=== PATIENT | male | born 1965 | race Caucasian/White ===

== ENCOUNTER 2016-06-11 12:09 | Emergency (ER) | payer BC, OTHER ==
[~2016-06-11] VITALS: Ht 165.1 cm; Wt 129.5 kg
[~2016-06-11 12:09] MED LIST: CHOL100010 PO; DICL50TA3 PO; MULTTAB58 PO; NAPR1TAB9 PO; SERT50TA PO; ZOLP10TA PO
[2016-06-11 12:14] VITALS: TEMP 36.8; Ht 165.1 cm; Wt 129.5 kg
[2016-06-11 12:24] VITALS: O2SAT 96
[2016-06-11 12:39] LABS: HEMATOCRIT 41.5 % (42-52); MEAN CELL VOLUME 92.8 fL (80-100); MEAN CORPUSCULAR HEMOGLOBIN 33.8 pg (25-34); MEAN CORPUSCULAR HGB CONC 36.4 g/dl (32-36); MEAN PLATELET VOLUME 8.7 fL (7.4-10.4); PLATELET COUNT 180 K/uL (130-400); RED BLOOD COUNT 4.47 M/uL (4.7-6.1); WHITE BLOOD COUNT 5.34 K/uL (4.8-10.8)
[2016-06-11 12:51] LABS: BUN/CREATININE RATIO 11.3 (10-20); CALCIUM 8.8 mg/dl (8.5-10.1); CREATININE 1.2 mg/dl (0.60-1.40); POTASSIUM 4.1 mmol/L (3.5-5.1)
[2016-06-11 12:52] LABS: INR 0.9 (0.9-1.1); PARTIAL THROMBOPLASTIN RATIO 0.9; PROTHROMBIN TIME (PATIENT) 10.1 SECONDS (9.0-12.0)
[2016-06-11 12:55] LABS: ALB/GLOB RATIO 1.3 (0.9-2); CKMB/CK RATIO 1.5 (0-3.0)
--- NOTE | 2016-06-11 12:55 | DIAGNOSTIC IMAGING REPORT ---
CHEST ONE VIEW PORTABLE CLINICAL HISTORY: CP dyspnea COMPARISON STUDY: 12/01/2011 FINDINGS: The bones soft tissues and hemidiaphragms are normal. The cardiomediastinal silhouette is normal. The lungs are clear. The pulmonary vasculature is normal. IMPRESSION: Negative chest. Electronically signed by: Celso Maldonado M.D. 06/11/2016 12:53 PM Dictated Date/Time: 06/11/2016 12:53 PM
[2016-06-11] MEDS ORDERED: CHOL1TAB42 PO (12:57)
--- NOTE | 2016-06-11 13:40 | EMERGENCY ROOM VISIT NOTE ---
History Report prepared by Kay: Wolfgang Temple Under the Supervision of: Dr. Grant Montana M.D. First contact with patient: 13:32 Chief Complaint: SWELLING TO EXTREMITY Stated Complaint: L LEG SWELLING/PAIN History of Present Illness The patient is a 50 year old male who presents to the Emergency Room with complaints of waxing and waning left leg swelling that started 2 days ago. He says he woke up that morning with left leg swelling, bruising, and pain. The patient has also been tired recently. He states that the symptoms got a bit better yesterday, but worsened today. He additionally complains of a bit of left chest pain, but currently his pain is a bit better. The patient has a history of blood clots in his legs. He denies any shortness of breath, loss of consciousness, or back pain. He has not had any recent long car trips. He is not on any steroids. The patient has no family history of heart problems, but he does have a family history of blood clots. Source of History: patient Onset: 2 days ago Position: leg (left) Timing: waxes/wanes Associated Symptoms: + chest pain, + fatigue, No LOC, No SOB, No back pain Note: Associated symptoms: Left leg pain and bruising. Review of Systems See HPI for pertinent positives & negatives. A total of 10 systems reviewed and were otherwise negative. Past Medical & Surgical Medical Problems: (1) Arthritis (2) Carcinoid tumor of colon (3) REN on CPAP (4) Ulcerative colitis Surgical Problems: (1) H/O colectomy (2) H/O eye surgery (3) H/O inguinal hernia repair (4) History of parotid gland excision (5) History of tonsillectomy and adenoidectomy Family History Blood clots FH: heart disease Social History Smoking Status: Never Smoker Alcohol Use: occasionally Marital Status: Housing Status: lives with family Occupation Status: employed Current/Historical Medications Scheduled Cholecalciferol (Vitamin D), 10,000 UNITS PO WK Multiple Vitamin (Multivitamin), 1 TABLET PO DAILY Sertraline (Zoloft), 100 MG PO DAILY Scheduled PRN Naproxen (Aleve), 220 MG PO BID PRN for Pain Zolpidem Tartrate (Ambien), 1 TAB PO HS PRN for Insomnia Allergies Coded Allergies: Codeine (Verified Adverse Reaction, Intermediate, headache, 06/11/16) Physical Exam Vital Signs Date Time Temp Pulse Resp B/P Pulse Ox O2 Delivery O2 Flow Rate FiO2 06/11/16 15:23 73 18 127/77 96 06/11/16 14:07 76 16 124/67 98 Room Air 06/11/16 12:24 75 18 96 Room Air 06/11/16 12:24 96 Room Air 06/11/16 12:14 36.8 79 20 142/92 96 Room Air Physical Exam GENERAL: Patient is well appearing and in no acute distress. HEENT: No acute trauma, normocephalic atraumatic, mucous membranes moist, no nasal congestion, no scleral icterus. NECK: No stridor, no adenopathy, no meningismus, trachea is midline. LUNGS: No dyspnea. Clear to auscultation and equal bilaterally. No wheeze, no rhonchi. HEART: Regular rate and rhythm. No murmurs, rubs, gallops appreciated. ABDOMEN: Soft, nontender, bowel sounds positive, no masses appreciated, no peritonitis. BACK: No midline tenderness, no CVA tenderness EXTREMITIES: Normal motion all extremities, no cyanosis. Mild swelling right calf compared to left, bruise of left lower inner thigh. NEUROLOGIC: Alert and oriented, no acute motor or sensory deficits, no focal weakness, cranial nerves grossly intact. SKIN: No rash, no jaundice, no diaphoresis. Medical Decision & Procedures ER Provider Diagnostic Interpretation: X ray results and stated below per my interpretation and radiologist interpretation. Other radiology results and stated below per my review and radiologist interpretation: CHEST ONE VIEW PORTABLE CLINICAL HISTORY: CP dyspnea COMPARISON STUDY: 12/01/2011 FINDINGS: The bones soft tissues and hemidiaphragms are normal. The cardiomediastinal silhouette is normal. The lungs are clear. The pulmonary vasculature is normal. IMPRESSION: Negative chest. Electronically signed by: Celso Maldonado M.D. 06/11/2016 12:53 PM Dictated Date/Time: 06/11/2016 12:53 PM Venous Doppler right leg RIGHT VENOUS DOPP LOWER EXT UNILAT CLINICAL HISTORY: Right leg swelling Right pain. Edema. TECHNIQUE: Venous Doppler COMPARISON STUDY: None FINDINGS: No evidence of deep venous thrombosis. Small popliteal cyst. IMPRESSION: 1. No evidence of deep venous thrombosis. 2. 4 x 2 cm popliteal cyst Electronically signed by: Celso Maldonado M.D. 06/11/2016 2:35 PM Dictated Date/Time: 06/11/2016 2:34 PM CHEST CTA for PULMONARY ARTERIES CT DOSE: 732.59 mGy.cm HISTORY: Chest pain dyspnea TECHNIQUE: Multiaxial CT images of the chest were performed following the intravenous administration of contrast to evaluate the pulmonary arteries. Maximal intensity projection images were also obtained. COMPARISON STUDY: 06/09/2015 FINDINGS: There is a normal caliber thoracic aorta with no evidence for dissection. There is no evidence for pulmonary embolus. No pleural effusions. No pneumothorax. The liver and spleen are unremarkable. No mediastinal or hilar lymphadenopathy. The central airways are patent. The lungs are clear. IMPRESSION: No evidence for pulmonary embolus. The lungs are clear. Electronically signed by: Celso Maldonado M.D. 06/11/2016 2:46 PM Dictated Date/Time: 06/11/2016 2:40 PM Laboratory Results 06/11/16 12:26 06/11/16 12:26 Test 06/11/16 12:26 06/11/16 12:46 Red Blood Count 4.47 M/uL (4.7-6.1) Mean Corpuscular Volume 92.8 fL (80-100) Mean Corpuscular Hemoglobin 33.8 pg (25-34) Mean Corpuscular Hemoglobin Concent 36.4 g/dl (32-36) RDW Standard Deviation 43.0 fL (36.4-46.3) RDW Coefficient of Variation 12.7 % (11.5-14.5) Mean Platelet Volume 8.7 fL (7.4-10.4) Prothrombin Time 10.1 SECONDS (9.0-12.0) Prothromb Time International Ratio 0.9 (0.9-1.1) Activated Partial Thromboplast Time 23.6 SECONDS (21.0-31.0) Partial Thromboplastin Ratio 0.9 Anion Gap 12.0 mmol/L (3-11) Est Creatinine Clear Calc Drug Dose 93.4 ml/min Estimated GFR () 81.8 Estimated GFR (Non- 70.6 BUN/Creatinine Ratio 11.3 (10-20) Calcium Level 8.8 mg/dl (8.5-10.1) Total Bilirubin 0.6 mg/dl (0.2-1) Aspartate Amino Transf (AST/SGOT) 18 U/L (15-37) Alanine Aminotransferase (ALT/SGPT) 31 U/L (12-78) Alkaline Phosphatase 60 U/L (45-117) Total Creatine Kinase 162 U/L (39-308) Creatine Kinase MB 2.5 ng/ml (0.5-3.6) Creatine Kinase MB Ratio 1.5 (0-3.0) Total Protein 7.0 gm/dl (6.4-8.2) Albumin 4.0 gm/dl (3.4-5.0) Globulin 3.0 gm/dl (2.5-4.0) Albumin/Globulin Ratio 1.3 (0.9-2) Bedside D-Dimer 271 ng/mlFEU (0-450) Bedside Troponin I 0.000 ng/ml (0-0.045) Laboratory results as reviewed by me. ECG Indication: chest pain Rate (beats per minute): 74 Rhythm: normal sinus Findings: no acute ischemic change, no ectopy ED Course 1335: The patient was evaluated in room A3. A complete history and physical exam was performed. 1512: I reevaluated the patient and he feels great and would like to go home. The patient verbally expressed understanding and agreement of the treatment plan. The patient will be discharged. Medical Decision Differential: Cardiac Ischemia (STEMI, NSTEMI, Unstable Angina, etc), Aortic Dissection, Arrhythmia, Pulmonary Embolism, Pneumonia, Pneumothorax, MSK, Infectious, Pericarditis/Myocarditis, Esophageal Rupture, Gastrointestinal, amongst other pathologies entertained. 50 yr old male arrives with right medial leg pain and bruising along with just mild increase right calf size compared to left (~1 cm). Notes earlier left upper chest pain brief without other symptoms and worse with movement though resolved now. EKG, trop negative. CT PE negative (done as history of dvt and leg swelling with recent chest pain, regardless of dimer). US right lower extremity consistent with moderately sized popliteal cyst without DVT. No evidence of DVT, PE, ACS, dissection, nor other issue. He is stable and without symptoms currently. Will follow up with PCP. Aware RTED if worsening or other concerns. Stable and feeling well at discharge. Impression Primary Impression: Swelling of right extremity Additional Impressions: Synovial cyst of right popliteal space Left sided chest pain Scribe Attestation The scribe's documentation has been prepared under my direction and personally reviewed by me in its entirety. I confirm that the note above accurately reflects all work, treatment, procedures, and medical decision making performed by me. Departure Information Dispostion Home / Self-Care Referrals No Doctor, Assigned (PCP) Patient Instructions Chest Pain - [facility], ED Edema Leg Unilateral, My [facility] Additional Instructions Please call your primary care provider tomorrow to set up a follow up appointment and discuss a stress test. Problem Qualifiers
[2016-06-11] MEDS ORDERED: OPTIRAY 320 IV PRN (14:00)
--- NOTE | 2016-06-11 14:36 | DIAGNOSTIC IMAGING REPORT ---
Venous Doppler right leg RIGHT VENOUS DOPP LOWER EXT UNILAT CLINICAL HISTORY: Right leg swelling Right pain. Edema. TECHNIQUE: Venous Doppler COMPARISON STUDY: None FINDINGS: No evidence of deep venous thrombosis. Small popliteal cyst. IMPRESSION: 1. No evidence of deep venous thrombosis. 2. 4 x 2 cm popliteal cyst Electronically signed by: Celso Maldonado M.D. 06/11/2016 2:35 PM Dictated Date/Time: 06/11/2016 2:34 PM
--- NOTE | 2016-06-11 14:47 | DIAGNOSTIC IMAGING REPORT ---
CHEST CTA for PULMONARY ARTERIES CT DOSE: 732.59 mGy.cm HISTORY: Chest pain dyspnea TECHNIQUE: Multiaxial CT images of the chest were performed following the intravenous administration of contrast to evaluate the pulmonary arteries. Maximal intensity projection images were also obtained. COMPARISON STUDY: 06/09/2015 FINDINGS: There is a normal caliber thoracic aorta with no evidence for dissection. There is no evidence for pulmonary embolus. No pleural effusions. No pneumothorax. The liver and spleen are unremarkable. No mediastinal or hilar lymphadenopathy. The central airways are patent. The lungs are clear. IMPRESSION: No evidence for pulmonary embolus. The lungs are clear. Electronically signed by: Celso Maldonado M.D. 06/11/2016 2:46 PM Dictated Date/Time: 06/11/2016 2:40 PM
[2016-06-11 15:23] VITALS: BP 127/77; PULSE 73; O2SAT 96
[2016-06-27] MEDS ORDERED: SERT100T PO (10:29)
[2016-06-27] MEDS ORDERED: MELO15TA4 PO (10:29)
== END 2016-06-11 15:25 | disposition home or self-care (01) ==
LOC: C.EDB 12:10 → C.EDA 15:25
DX: M71.21 Synovial cyst of popliteal space [Baker], right knee (principal); R22.42 Localized swelling, mass and lump, left lower limb; R07.89 Other chest pain; M19.90 Unspecified osteoarthritis, unspecified site; G47.33 Obstructive sleep apnea (adult) (pediatric); Z87.11 Personal history of peptic ulcer disease; Z85.030 Personal history of malignant carcinoid tumor of large intestine; Z79.899 Other long term (current) drug therapy; Z98.890 Other specified postprocedural states; Z88.5 Allergy status to narcotic agent; Z82.49 Family history of ischemic heart disease and other diseases of the circulatory system; Z83.2 Family history of diseases of the blood and blood-forming organs and certain disorders involving the immune mechanism

== ENCOUNTER → 2016-07-07 | Day surgery (SDC) | payer BC ==
[2016-06-27 10:30] VITALS: Ht 167.6 cm; Wt 119.5 kg
[~2016-07-07] VITALS: Ht 167.6 cm; Wt 119.5 kg
[~2016-07-07] MED LIST changes: -CHOL100010 PO; +CHOL1TAB42 PO; -DICL50TA3 PO; +LIDOCAINE HCL 2% 2 ML VIAL (20MG/ML) ONE; +MELO15TA4 PO; +PROPOFOL IV EMULSION 10 MG/ML 20 ML VIAL IV ONE; +SERT100T PO; -SERT50TA PO; +SODIUM CHLORIDE 0.9% 500ML 500 ML IV ONE
--- NOTE | 2016-07-07 09:42 | Endo History and Physical ---
History & Physical Date of Service: Jul 07, 2016. Chief Complaint: ulcerative colitis Referring Physician: Dr. Celso Oneal History of Present Illness ulcerative colitis Past Medical History Asthma, Cancer, Sleep Apnea Past Surgical History Hx Cardiac Surgery: No Hx Internal Defibrillator: No Hx Pacemaker: No Hx Abdominal Surgery: Yes (HERNIA REPAIR) Hx of Implantable Prosthesis: No Hx Post-Op Nausea and Vomiting: No Hx Cancer Surgery: Yes (TOTAL COLECTOMY WITH COLOSTOMY AND REVERSAL) Hx Thoracic Surgery: No Hx Orthopedic: No Hx Urinary Tract Surgery: No Family History None Social History Smoking Status: Never Smoker Hx Substance Use: No Hx Alcohol Use: Yes (OCCASIONAL) Allergies Coded Allergies: Codeine (Verified Adverse Reaction, Intermediate, headache, 06/27/16) Current Medications Reported Home Medications Medications Dose Route/Sig Max Daily Dose Days Date Category Meloxicam 15 Mg Tab 1 Tab PO DAILY PRN 06/27/16 Reported Zoloft (Sertraline Hcl) 100 Mg Tab 100 Mg PO QAM 06/27/16 Reported Vitamin D (Cholecalciferol) 5,000 Unit Tab 10,000 Units PO WK 06/11/16 Reported Aleve (Naproxen) 220 Mg Tab 220 Mg PO BID PRN 06/09/15 Reported Ambien (Zolpidem Tartrate) 10 Mg Tab 1 Tab PO HS PRN 06/09/15 Reported Multivitamin (Multiple Vitamin) 1 Tab Tab 1 Tablet PO QAM 07/21/12 Reported Vital Signs Weight (Kilograms): 119.55 Height (Feet): 5 Height (Inches): 6 Date Time Temp Pulse Resp B/P Pulse Ox O2 Delivery O2 Flow Rate FiO2 07/07/16 09:11 37 80 20 127/73 95 Room Air Physical Exam General Appearance: no apparent distress Respiratory/Chest: Auscultation: breath sounds normal Cardiovascular: Apical Impulse: not displaced Abdomen: Inspection & Palpation: soft Assessment and Plan H/o UC s/p pouch - cscopy
--- NOTE | 2016-07-07 09:43 | Discharge Instructions ---
Endoscopy Patient Instructions Date / Procedure(s) Performed Jul 07, 2016. Colonoscopy Allergy Information Coded Allergies: Codeine (Verified Adverse Reaction, Intermediate, headache, 06/27/16) Discharge Date / Findings Jul 07, 2016. Normal pouch. Medication Instructions Stopped Medication(s): had NSAIDS for 3 weeks,took Meloxicam 2 days ago Provider Instructions Activity Restrictions - No exercising or heavy lifting for 24 hours. - Do not drink alcohol the day of the procedure. - Do not drive a car or operate machinery until the day after the procedure. - Do not make any important decisions or sign important papers in 24 hours after the procedure. Following Day: - Return to full activity which may include returning to work/school. Diet Start your diet with liquids and light foods (jello, soup, juice, toast). Then eat your usual diet if not nauseated. Treatment For Common After Affects For mild abdominal pain, bloating, or excessive gas: - Rest - Eat lightly - Lie on right side Follow-Up Information Follow-up with Dr. Celso Oneal as scheduled Anesthesia Information What You Should Know You have had a procedure that required some medicine to reduce anxiety and discomfort. This treatment is called moderate sedation. After receiving the treatment, you may be sleepy, but you will be able to breathe on your own. The effects of the treatment may last for several hours. Follow these instructions along with Activity/Diet recommendations noted above: * Do NOT do anything where dizziness or clumsiness would be dangerous. * Rest quietly at home today, then you can be up and about tomorrow. * Have a responsible person stay with you the rest of today. * You may have had an I.V. today. If so, you may take the dressing off later today. Recommendations Call your doctor if: * Trouble breathing * Continuous vomiting for more than 24 hours * Temperature above 101 degrees * Severe abdominal pain or bloating * Pain not relieved by pain medicine ordered * There is increased drainage or redness from any incision * A large amount of rectal bleeding greater than 2-3 tablespoons. (If you had a polyp/s removed or have hemorrhoids, a small amount of blood - from the rectum is to be expected.) * You have any unanswered questions or concerns. IN THE EVENT OF A SERIOUS EMERGENCY, GO TO THE NEAREST EMERGENCY ROOM Your discharge instructions were prepared by provider Danny Pierson. Patient Instructions Signature Page Anibal Jay Patient (or Guardian) Signature/Date: I have read and understand the instructions given to me by my caregivers. Caregiver/RN/Doctor Signature/Date: The above-named patient and/or guardian has received patient instructions on this date. + Original Patient Signature Page (only) stays with chart. Please make copy for patient.
--- NOTE | 2016-07-07 09:45 | GI REPORT ---
Procedure Date: 07/07/2016 9:12 AM Procedure: Pouchoscopy Indications: Inflammatory bowel disease Medicines: See the Anesthesia note for documentation of the administered medications Complications: No immediate complications. Estimated Blood Loss: Estimated blood loss: none. Procedure: Pre-Anesthesia Assessment: - ASA Grade Assessment: II - A patient with mild systemic disease. After obtaining informed consent, the endoscope was passed under direct vision. Throughout the procedure, the patient's blood pressure, pulse, and oxygen saturations were monitored continuously. The Scope was introduced through the anus and advanced to the J-pouch. After obtaining informed consent, the endoscope was passed under direct vision. Throughout the procedure, the patient's blood pressure, pulse, and oxygen saturations were monitored continuously.The procedure was performed without difficulty. The patient tolerated the procedure well. The quality of the bowel preparation was good. Findings: There was an unremarkable J pouch. The mucosa of the J pouch was unremarkable, without evidence of pouchitis. There was minute rectal cuff that was biopsied. Recommendation: - Discharge patient to home. Danny Patiño M.D. Danny Patiño MD 07/07/2016 9:46:26 AM This report has been signed electronically. Note Initiated On: 07/07/2016 9:12 AM I attest to the content of the Intraoperative Record and orders documented therein, exceptions below
[2016-07-07 10:10] VITALS: BP 107/54; PULSE 73; O2SAT 95
--- NOTE | 2016-07-07 12:24 | Anesthesiology Progress Note ---
Anesthesia Post Op Note Date & Time Jul 07, 2016 at 12:24 Vital Signs Pain Intensity: 0 Vital Signs Past 12 Hours Date Time Temp Pulse Resp B/P Pulse Ox O2 Delivery O2 Flow Rate FiO2 07/07/16 10:10 73 18 107/54 95 Room Air 07/07/16 09:55 73 18 128/68 95 Room Air 07/07/16 09:40 83 16 138/57 95 Room Air 07/07/16 09:11 37 80 20 127/73 95 Room Air Notes Mental Status: alert / awake / arousable, participated in evaluation Pt Amnestic to Procedure: Yes Nausea / Vomiting: adequately controlled Pain: adequately controlled Airway Patency, RR, SpO2: stable & adequate BP & HR: stable & adequate Hydration State: stable & adequate Anesthetic Complications: no major complications apparent
== END | disposition home or self-care (01) ==
LOC: C.GI 08:51
PROVIDERS: ATTEND Internal Medicine Gastroenterology
DX: K58.9 Irritable bowel syndrome, unspecified (principal); J45.909 Unspecified asthma, uncomplicated; G47.30 Sleep apnea, unspecified; Z85.038 Personal history of other malignant neoplasm of large intestine

== ENCOUNTER 2017-05-15 10:51 | Inpatient (IN) | payer BC ==
[2017-04-20 13:27] VITALS: BMI 45.0
--- NOTE | 2017-04-20 14:03 | PAT Medication Instructions ---
Service Date Apr 20, 2017. Current Home Medication List Diclofenac (Voltaren), 75 MG PO BID Ergocalciferol (Vitamin D 16902 Unit), 50,000 UNIT PO WK Sertraline Hcl (Zoloft), 100 MG PO QAM Medication Instructions For Your Scheduled Surgery - Continue as directed: Ergocalciferol (Vitamin D 13415 Unit), 50,000 UNIT PO WK - Hold the following medications 10 days prior to surgery per surgeon's instructions: Diclofenac (Voltaren), 75 MG PO BID - Take the following medications the morning of surgery with a sip of water OTHERWISE NOTHING TO EAT OR DRINK AFTER MIDNIGHT: Sertraline Hcl (Zoloft), 100 MG PO QAM If you have any questions please call us at [phone] or [phone] or [phone]
[2017-04-20 14:35] LABS: BASO % 0.4 %; BASO ABS # 0.02 K/uL (0-0.2); EOS % 1.5 %; EOS ABS # 0.08 K/uL (0-0.5); HEMATOCRIT 44.3 % (42-52); HEMOGLOBIN 15.6 g/dL (14.0-18.0); IG# 0.02 K/uL (0.00-0.02); LYMPH % 36.2 %; LYMPH ABS # 1.89 K/uL (1.2-3.4); MEAN CELL VOLUME 95.3 fL (80-100); MEAN CORPUSCULAR HEMOGLOBIN 33.5 pg (25-34); MEAN CORPUSCULAR HGB CONC 35.2 g/dl (32-36); MEAN PLATELET VOLUME 8.8 fL (7.4-10.4); MONO % 11.1 %; MONO ABS # 0.58 K/uL (0.11-0.59); NEUT % 50.4 %; NEUT ABS # 2.63 K/uL (1.4-6.5); PLATELET COUNT 164 K/uL (130-400); RED CELL DISTRIBUTION WIDTH CV 13.1 % (11.5-14.5); RED CELL DISTRIBUTION WIDTH SD 45.2 fL (36.4-46.3); WHITE BLOOD COUNT 5.22 K/uL (4.8-10.8)
--- NOTE | 2017-04-20 14:37 | DIAGNOSTIC IMAGING REPORT ---
CHEST 2 VIEWS ROUTINE CLINICAL HISTORY: 51 years-old Male presenting with preadmission chest x-ray. TECHNIQUE: PA and lateral views of the chest were obtained. COMPARISON: CT from 06/11/2016 and chest x-ray from 06/11/2016. FINDINGS: Cardiac silhouette top normal in size. Lungs and pleural spaces clear. Degenerative changes of the thoracic spine. Upper abdomen normal. IMPRESSION: 1. No acute cardiopulmonary disease. Electronically signed by: Cesar Conklin M.D. 04/20/2017 2:35 PM Dictated Date/Time: 04/20/2017 2:34 PM
[2017-04-20 14:44] LABS: INR 0.9 (0.9-1.1); PTT PATIENT 23.1 SECONDS (21.0-31.0)
[2017-04-20 14:50] LABS: CREATININE 0.85 mg/dl (0.60-1.40); POTASSIUM 4.3 mmol/L (3.5-5.1)
[2017-04-21 07:46] LABS: HEMOGLOBIN A1C 5.7 % (4.5-5.6)
--- NOTE | 2017-05-11 19:13 | HISTORY & PHYSICAL EXAMINATION ---
DATE OF ADMISSION: 05/15/2017 CHIEF COMPLAINT: Bilateral knee pain, right side greater than left. HISTORY OF PRESENT ILLNESS: There is a 51-year-old gentleman who presents for surgical treatment of his right knee. He has got a long history of bilateral knee pain and discomfort and I have been following him for the past several years, treating him conservatively with injections. The pain has gradually gotten worse. It has been a gradual process over the past 10 years. Shots have not helped much anymore. Pain is mostly on the medial side, but some globally. He is interested in proceeding with knee replacement. He would like to do the right knee first. The patient does have a history of ulcerative colitis and colon cancer, status post resection. No apparent residual disease. PAST MEDICAL HISTORY: Significant for: 1. Ulcerative colitis/colon cancer, status post resection. 2. Sleep apnea with CPAP machine. 3. Obesity with a BMI of 45. PAST SURGICAL HISTORY: Include: 1. Left shoulder surgery. 2. Eye surgery. 3. Herniorrhaphy. 4. Colectomy. ALLERGIES: None. CURRENT MEDICATIONS: 1. Sertraline. 2. Voltaren. SOCIAL HISTORY: A 51-year-old male. He is from [place]. His medical doctor is Dr. Oneal. FAMILY HISTORY: Negative for diabetes, heart disease or blood clots. REVIEW OF SYSTEMS: Significant for ____ but status post colectomy without residual disease. Denies any history of DVT or PE. No chest pain or shortness of breath. No bleeding problems. PHYSICAL EXAMINATION: GENERAL: Reveals a healthy, pleasant, middle-aged male. He is a fairly large gentleman. HEENT: Benign. NECK: Supple. No lymphadenopathy. LUNGS: Clear to auscultation. HEART: Regular rate and rhythm. ABDOMEN: Soft, nontender, nondistended. EXTREMITIES: Grossly neurovascularly intact except as follows: Examination of both knees reveals the patient walks with a waddling gait. He has got varus alignment to both knees. He has got moderate-sized knee effusions bilaterally. Range of motion is symmetric with about 5 degrees short of full extension to 120 degrees of flexion. There is no instability in either side. X-RAYS: X-rays of both knees were reviewed. It shows advanced bilateral knee DJD. He has got near complete loss of his medial joint space. The severity is pretty equal on both sides. He has got some ossicles around the tibial tubercles. ASSESSMENT: A 51-year-old male with a history of ulcerative colitis in the past with advanced bilateral knee pain and degenerative joint disease. He has failed conservative treatment and would like to proceed with knee replacement. The right side is more symptomatic than the left. PLAN: We will take him to the operating room and do a right total knee replacement. The risk and benefits of right total knee replacement were explained to the patient including but not limited to DVT, PE, , infection, neurological injury, vascular injury, bleeding problem, pain, limited range of motion, stiffness, failure to relieve symptoms, incomplete relief of symptoms, need for further surgery in the future, persistent pain, need for revision surgery, etc. The patient understands and desires to proceed. Informed consent was obtained. We did talk to him about bringing his CPAP machine to the hospital. He stopped his Voltaren 10 days preop. He is planning to be discharged to home using [facility] home health program.
[~2017-05-15] VITALS: Ht 167.6 cm; Wt 126.6 kg
[~2017-05-15 10:51] MED LIST changes: +ACETAMINOPHEN 500 MG TAB PO SCH; +BUPIVACAINE 0.5 % 5 MG/1 ML PF 10ML VIAL ONE; +BUPIVACAINE LIPOSOME 266 MG, BUPIVACAINE/EPINEPHRINE INJ 50 ML, SODIUM CHLORIDE 0.9% PF... INFIL SCH; +CEFAZOLIN 3000MG IV PUSH 15 ML IV SCH; -CHOL1TAB42 PO; +DICL-201 PO; +ERGO500037 PO; +FAMOTIDINE 20 MG TAB PO SCH; +GABAPENTIN 300 MG CAP PO SCH; +LACTATED RINGER'S 1000ML 1,000 ML IV SCH; +LACTATED RINGER'S 1000ML 500 ML IV SCH; +LACTATED RINGER'S 1000ML IV SCH; -LIDOCAINE HCL 2% 2 ML VIAL (20MG/ML) ONE; -MELO15TA4 PO; +METOCLOPRAMIDE HCL 10 MG TAB PO SCH; -MULTTAB58 PO; -NAPR1TAB9 PO; -PROPOFOL IV EMULSION 10 MG/ML 20 ML VIAL IV ONE; +SCOPOLAMINE 1.5 MG TDSY TD SCH; -SODIUM CHLORIDE 0.9% 500ML 500 ML IV ONE; +TRANEXAMIC ACID INJ 1,000 MG in SYRINGE 0 ML IV SCH; -ZOLP10TA PO
--- NOTE | 2017-05-15 11:12 | History & Physical Bridge Note ---
H&P Re-Evaluation Bridge Note: I have examined the patient, reviewed the History & Physical and in the interval since the performance of the History & Physical I have noted the following changes of clinical significance: No changes noted
[2017-05-15 11:19] VITALS: BP 158/85; PULSE 85; TEMP 36.3; O2SAT 97; Ht 167.6 cm; Wt 126.6 kg
[2017-05-15] MEDS ORDERED: LIDOCAINE HCL 2% 2 ML VIAL (20MG/ML) ONE ×2 (11:44→12:05)
[2017-05-15] MEDS ORDERED: PROPOFOL IV EMULSION 10 MG/ML 20 ML VIAL IV ONE ×2 (11:44→12:05)
[2017-05-15] MEDS ORDERED: FENTANYL CITRATE INJ 50 MCG/1 ML 2 ML VIAL ONE ×5 (11:44→15:11)
[2017-05-15] MEDS ORDERED: MIDAZOLAM HCL 1 MG/ML 2ML VIAL ONE (11:44)
[2017-05-15] MEDS ORDERED: EpHEDrine SULFATE INJ 50 MG/ML AMP IV PRN (12:00)
[2017-05-15] MEDS ORDERED: ATROPINE SULFATE 0.1 MG/ML 5ML SYR IV PRN (12:00)
[2017-05-15] MEDS ORDERED: ONDANSETRON INJ 2 MG/ML 2 ML VIAL IV PRN ×2 (12:00→15:30)
[2017-05-15] MEDS ORDERED: BUPIVACAINE 0.25% 30 ML VIAL ONE (12:00)
[2017-05-15] MEDS ORDERED: DEXAMETHASONE SOD INJ 4 MG/ML VIAL ONE (12:05)
[2017-05-15] MEDS ORDERED: ONDANSETRON INJ 2 MG/ML 2 ML VIAL ONE (12:05)
[2017-05-15] MEDS ORDERED: BUPIVACAINE/EPINEPHRINE 0.25% 1:200,000 30 ML VIAL ONE (13:14)
[2017-05-15] MEDS ORDERED: BUPIVACAINE LIPOSOME 1/3% 266 MG/20 ML VIAL INFIL ONE (13:14)
[2017-05-15] MEDS ORDERED: SODIUM CHLORIDE 0.9% PF 50 ML VIAL ONE (13:14)
[2017-05-15] MEDS ORDERED: BACITRACIN 50000 UNIT VIAL ONE (13:14)
[2017-05-15] MEDS ORDERED: ROCURONIUM BROMIDE 10 MG/ML 5 ML VIAL IV ONE (13:49)
[2017-05-15] MEDS ORDERED: SUCCINYLCHOLINE CHLORIDE 20 MG/ML 10 ML VIAL IV ONE (13:49)
[2017-05-15] MEDS ORDERED: MoRPHine SULFATE 10 MG/ML CARP/VIAL IV PRN (15:15)
--- NOTE | 2017-05-15 15:19 | [facility] Post Operative Brief Note ---
Immediate Operative Summary Operative Date May 15, 2017. Pre-Operative Diagnosis Advanced Right Knee Degenerative Joint Disease Post-Operative Diagnosis Same as preoperative diagnosis Procedure(s) Performed Right Total Knee Arthroplasty Surgeon Dr. Roberts Despatch Clerk Surgeon(s) Clare Morales PA-C Estimated Blood Loss 50ml Findings Consistent with Post-Op Diagnosis Fluids (cc crystalloids) 1800 cc Specimens a. right knee bone and tissue Drains None Anesthesia Type General Complication(s) none Disposition Accompanied Pt To Recover: no Disposition: Recovery Room / PACU
[2017-05-15] MEDS ORDERED: DiphenhydrAMINE HCL 50 MG/ML VIAL IV PRN (15:30)
[2017-05-15] MEDS ORDERED: MAGNESIUM HYDROXIDE SUSP 30 ML UDC PO PRN (15:30)
[2017-05-15] MEDS ORDERED: ALUMINUM/MAGNESIUM/SIMETH (MAALOX MAX) 30 ML UDC PO PRN (15:30)
[2017-05-15] MEDS ORDERED: BISACODYL 10 MG SUPP PR PRN (15:30)
[2017-05-15] MEDS ORDERED: ZOLPIDEM TARTRATE 5 MG TAB PO PRN (15:30)
[2017-05-15] MEDS ORDERED: TAMSULOSIN HCL 0.4 MG CAP PO PRN (15:30)
[2017-05-15] MEDS ORDERED: SILVER SULFADIAZINE 1% CR 50 GM JAR EXT PRN (15:30)
[2017-05-15] MEDS ORDERED: MoRPHine SULFATE 2 MG/ML CARP IV PRN (15:30)
[2017-05-15] MEDS ORDERED: METOCLOPRAMIDE HCL INJ 5 MG/ML 2 ML VIAL IV PRN (15:30)
[2017-05-15] MEDS: FENTANYL CITRATE INJ 50 MCG/1 ML 2 ML VIAL IV PRN ×2 (15:40→15:45)
--- NOTE | 2017-05-15 15:43 | DIAGNOSTIC IMAGING REPORT ---
RIGHT KNEE 2 VIEWS History: Right total knee arthroplasty. Degenerative arthritis. Postop. FINDINGS: The patient is status post a right total knee arthroplasty. The hardware is intact. No fracture or dislocation. Skin narda are in place. IMPRESSION: Right total knee arthroplasty. No evidence for hardware complication. Electronically signed by: Leonardo Parsons M.D. 05/15/2017 3:41 PM Dictated Date/Time: 05/15/2017 3:41 PM
--- NOTE | 2017-05-15 16:03 | Anesthesiology Progress Note ---
Anesthesia Post Op Note Date & Time May 15, 2017 at 16:02 Vital Signs Pain Intensity: 0 Vital Signs Past 12 Hours Date Time Temp Pulse Resp B/P (MAP) Pulse Ox O2 Delivery O2 Flow Rate FiO2 05/15/17 15:55 79 13 132/77 94 Nasal Cannula 4 05/15/17 15:45 80 14 151/85 97 Oxymask 10 05/15/17 15:35 67 11 136/86 98 Oxymask 10 05/15/17 15:26 36.2 66 20 142/80 97 Oxymask 10 05/15/17 11:19 36.3 85 20 158/85 97 Room Air Notes Mental Status: alert / awake / arousable, participated in evaluation Pt Amnestic to Procedure: Yes Nausea / Vomiting: adequately controlled Pain: adequately controlled Airway Patency, RR, SpO2: stable & adequate BP & HR: stable & adequate Hydration State: stable & adequate Anesthetic Complications: no major complications apparent
[2017-05-15 16:40] VITALS: BP 164/82; PULSE 84; TEMP 36.9; O2SAT 96
[2017-05-15] MEDS: CHECK SCOPOLAMINE PATCH PLACEMENT SCH (16:40)
[2017-05-15 17:10] VITALS: BP 147/89; PULSE 80; TEMP 37.1; O2SAT 96
--- NOTE | 2017-05-15 18:12 | OPERATIVE REPORT ---
DATE OF OPERATION: 05/15/2017 SURGEON: Dr. Jg Roberts. HEALTH THERAPIST: LINNETTE Madrid PREOPERATIVE DIAGNOSIS: Right knee degenerative joint disease. POSTOPERATIVE DIAGNOSIS: Same. PROCEDURE PERFORMED: Right cemented posterior stabilized total knee arthroplasty. COMPLICATIONS: None. ESTIMATED BLOOD LOSS: 50 mL. TOURNIQUET TIME: 61 minutes at 300 mmHg. FLUID REPLACEMENT: 1800 mL crystalloid fluid replacement. ANESTHESIA: General anesthesia with adductor canal block. OPERATIVE INDICATIONS: The patient is a 51-year-old gentleman who has a long history of bilateral knee pain and discomfort. He has a history of ulcerative colitis and thought to have some musculoskeletal manifestations and developed a severe bilateral knee DJD. He underwent treatment of his ulcerative colitis, but continues to have persistent pain, discomfort and swelling in both knees. His right knee was worse than left. He has been through extensive conservative treatment. He had failed. He elected to proceed with total knee arthroplasty. OPERATIVE IMPLANTS: Operative implants consisted of: 1. Biomet Vanguard size 65 right posterior stabilized femoral component. 2. Biomet size 75 tibial tray. 3. A 10-mm posterior stabilized polyethylene insert. 4. A 31 x 8 all poly patella. OPERATIVE FINDINGS: Operative findings revealed advanced right knee DJD. He had extensive grade 4 changes in the medial compartment as well as patellofemoral compartment. He had marked lateral tracking of patella with eburnation of the lateral trochlea. He had a large knee joint effusion. OPERATIVE PROCEDURE: The patient was taken to the operating room, identified and placed on the operating table in the supine position. All contact areas were appropriately padded. IV antibiotics were provided by anesthesia team. An adductor canal block had been provided in the holding area. The patient was adamantly desired a general anesthetic, so a general anesthetic was implemented by the anesthesia team. A right thigh tourniquet was then placed. The right lower extremity was then prepped and draped in the usual sterile fashion. The right leg was elevated and exsanguinated with Esmarch and tourniquet was placed at 300 mmHg. An anterior approach to the right knee was then performed through a longitudinal incision centered over the patella. Sharp dissection was carried out through the subcutaneous tissue down to the level of the extensor mechanism. A medial parapatellar arthrotomy incision was made. Some subperiosteal dissection was carried out medially. The fat pad was resected from beneath the patellar tendon. The lateral patellofemoral ligament was released. The patella was everted and the knee was flexed. The osteophytes were taken off the distal femur. The ACL and PCL were then released from the distal femur and the tibia subluxated anteriorly. The external tibial alignment jig was then placed in the anterior face of the tibia and adjusted 14 mm medially. Proximal tibial cut was made to remove about a mm to 2 of bone from the most deficient aspect of the medial tibial plateau. Tibia was sized to size 75. Attention was then drawn to the femur. The distal femur was entered with a sharp drill. The intramedullary canal was suctioned. A right 6-degree valgus cutting guide was placed. Distal femoral cutting block was pinned in place. Distal femoral cut was made to take an additional 3 mm of bone off the distal femur. The femur was then sized to a size 65. We downsized this almost an entire size. The AP cutting block was pinned parallel to the epicondylar axis, which was 5 degrees of external rotation. We took great care to try and help optimize the patellar tracking. The anterior cut, anterior chamfer, posterior cut, and posterior chamfer cuts were made. Box cutting guide was placed and adjusted slightly lateral and the box cut was made. The knee was flexed. The remnants of the medial and lateral menisci were excised. The osteophytes were taken off the posterior aspect of the femur. A trial femoral component was placed. Tibial tray was pinned in maximum external rotation and drill and stem punch were used to create defect in proximal tibia for the tibial tray. The knee was then trialed and the 10-mm insert fit most appropriately. Attention was then drawn to the patella. The patella was cleaned of all soft tissues. Patellar thickness measured 23 mm in thickness and it was cut down to 14. It was sized to a size 31 patella. Lug holes were drilled for the 31 patella. Lateral osteophyte was removed. Patella button was placed. Knee was taken through range of motion and the patella tracked nicely with no thumbs test. Attention was then drawn toward placement of permanent components. All trial components were removed. A bone plug was placed in the distal femur to limit blood loss. A double batch of Palacos G cement was mixed. A right size 65 posterior stabilized femoral component, size 75 tibial tray, a 10-mm posterior stabilized polyethylene insert, and a 31 x 8 all poly patella were then cemented in place. The knee was brought out into full extension until cement hardened. A final cement check was then performed. Pericapsular tissues were injected with a total of 100 mL of a combination of 20 mL of Exparel, 30 mL of normal saline, and 50 mL of 0.25% Marcaine with epinephrine. The patient did receive 1 gram of tranexamic acid. The tourniquet was then let down for a final tourniquet time of 61 minutes. Hemostasis was assured with the use of electrocautery. The extensor mechanism was then closed with a combination of #1 PDS suture and #1 Vicryl suture in a [id number] fashion. Extensor mechanism was checked and found to be intact. Subcutaneous tissues were then closed with 2-0 Dexon suture in a buried interrupted fashion. Skin was closed with skin narda. A sterile dressing with Xeroform, 4 x 4, sterile cast padding and Eladio bandage were applied. The patient was then brought out of general anesthesia and transferred to the recovery room in stable condition. The patient tolerated the procedure well with no complications. All needle and sponge counts were correct at the end of the operation. I attest to the content of the Intraoperative Record and any orders documented therein. Any exception s are noted below.
[2017-05-15 18:40] VITALS: BP 153/93; PULSE 95; TEMP 36.9; O2SAT 97
[2017-05-15] MEDS: D5W AND 1/2NSS + 20MEQ KCL 1,000 ML IV SCH (18:48)
[2017-05-15] MEDS: FERROUS GLUCONATE 324 MG TAB PO SCH (18:49)
[2017-05-15] MEDS: KETOROLAC TROMETHAMINE 30 MG/ML VIAL IV. SCH (18:50)
[2017-05-15 19:40] VITALS: BP 133/85; PULSE 96; TEMP 37.1; O2SAT 92
[2017-05-15] MEDS ORDERED: TRANEXAMIC ACID INJ 1,000 MG in SODIUM CHLORIDE 0.9% 100ML 100 ML IV SCH (20:00)
[2017-05-15] MEDS: DOCUSATE SODIUM 100 MG CAP PO SCH (20:36)
[2017-05-15] MEDS: SENNA 8.6 MG TAB PO SCH (20:36)
[2017-05-15] MEDS: TAPENTADOL ER 50 MG TABCR PO SCH (21:36)
[2017-05-15] MEDS: ASPIRIN 325 MG ECTAB PO SCH (21:38)
[2017-05-15] MEDS: ACETAMINOPHEN 500 MG TAB PO SCH (21:39)
[2017-05-15] MEDS: CEFAZOLIN IV 2,000 MG in SYRINGE 0 ML IV SCH (22:27)
[2017-05-15 23:55] VITALS: BP 131/72; PULSE 95; TEMP 37.1; O2SAT 95
[2017-05-16] MEDS: KETOROLAC TROMETHAMINE 30 MG/ML VIAL IV. SCH ×5 (00:05→23:37)
[2017-05-16] MEDS: CHECK SCOPOLAMINE PATCH PLACEMENT SCH ×4 (00:05→23:37)
[2017-05-16] MEDS: OXYCODONE HCL IR 5 MG TAB (IMMEDIATE RELEASE) PO PRN ×3 (00:16→12:48)
[2017-05-16] MEDS: D5W AND 1/2NSS + 20MEQ KCL 1,000 ML IV SCH ×3 (02:38→13:30)
[2017-05-16 03:53] VITALS: BP 113/77; PULSE 69; TEMP 37.1; O2SAT 94
[2017-05-16] MEDS: CEFAZOLIN IV 2,000 MG in SYRINGE 0 ML IV SCH (05:27)
[2017-05-16] MEDS: ACETAMINOPHEN 500 MG TAB PO SCH ×3 (05:28→22:29)
[2017-05-16 07:08] VITALS: BP 108/72; PULSE 76; TEMP 36.9; O2SAT 94
[2017-05-16] MEDS ORDERED: ASPEC325 PO (07:52)
[2017-05-16] MEDS ORDERED: RXC5 PO (07:52)
[2017-05-16] MEDS ORDERED: ACET-24 PO (07:52)
--- NOTE | 2017-05-16 07:53 | Discharge Instructions ---
Discharge Instructions Date of Service May 16, 2017. Admission Reason for Admission: Right Knee Degenerative Joint Disease, Knee Pain Discharge Discharge Diagnosis / Problem: Right Knee Replacement Discharge Goals Goal(s): Decrease discomfort, Improve function, Increase independence, Improve disease control, Therapeutic intervention Activity Recommendations Activity Limitations: per Instructions/Follow-up section Weightbearing Status: Right weightbearing . Instructions / Follow-Up Instructions / Follow-Up ACTIVITY RECOMMENDATIONS: Physical Therapy: * You will go to physical therapy three times each week for four to six weeks after your surgery in order to regain your knee range of motion and to retrain your knee to work properly. * It is just as important to make sure you are getting your knee perfectly straight as it is to regain your knee bend. * Taking a pain pill an hour before therapy can help you have a more productive and comfortable therapy session. Home Exercise: * You were shown a series of exercises (heel props, heel slides, etc.) in the hospital. Do these exercises three to four times each day including the exercises you were shown in physical therapy. Walking: * Get up and walk several times each day. For the first four weeks, try not to stand or walk for more than one hour at a time. If you do stand or walk for more than one hour, you will not hurt anything, but your knee and leg will likely swell. * As you feel comfortable, you may change from the walker or crutches to a cane and then to independent walking. MEDICATIONS: New Medicine: * You will likely be taking one or more of these medications: 1. Oxycodone - A quick and shorter-acting pain medication. Take one to two tablets every four to six hours to lessen your pain. 2. Aspirin - Thins your blood to lessen the chance of forming a blood clot. * The most common side effects of pain medicine and iron are nausea and constipation. If nausea or constipation is too much of a problem or if you have any questions about your new medicines or doses, call [facility] at [phone]. We will try to help you manage these issues. VERY IMPORTANT TO READ AND REVIEW" Pain: * The immediate post-operative period after knee replacement surgery is often quite painful. * You are given a prescription for pain medicine. You should take it, as directed, when you need it, especially before physical therapy and before going to bed. Pain that interferes with sleep is very common and can last several months. * You will likely need pain medicine for the first four to six weeks. It will not stop all of the pain. The pain will lessen and as you feel better, you may change to milder pain medicine such as Tylenol. * The most common side effects of pain medicine are nausea and constipation, so don't take more than you need. SPECIAL CARE INSTRUCTIONS: TEDs/Elastic Stockings: * The white elastic stockings help limit swelling and prevent blood clots from forming in your legs. The more you wear them, the more they work. * Wear them for six weeks after knee replacement surgery and four weeks after partial knee replacement. Prevention of Infection: * Take antibiotics one hour before any dental cleaning, dental work, urological procedure, gastrointestinal procedure or any invasive surgery in order to prevent your new joint from getting infected. * You may get the antibiotics from the doctor performing the procedure or you may call our office at before and we will call in a prescription to the pharmacy of your choice. Things to Watch For: * Drainage from the incision site that occurs more than one week after your surgery. * Severely increased knee/leg pain or swelling. * Increased redness at the incision site. * Fever above 102 degrees Fahrenheit. * Unusual chest pain or shortness of breath. * Unusual pain or burning with urination. Call [facility] at with any of the above problems or if you have any questions about your medicines or recovery. FOLLOW UP VISIT: Make an appointment to see your doctor for approximately two weeks after surgery for a progress check and staple removal by calling the office at . Current Hospital Diet Patient's current hospital diet: Regular Diet Discharge Diet Recommended Diet: Regular Diet Procedures Procedures Performed: Right Total Knee Arthroplasty Pending Studies Studies pending at discharge: no Laboratory Results Hemoglobin A1c Test 04/20/17 14:10 Range/Units Estimated Average Glucose 117 mg/dl Hemoglobin A1c 5.7 H 4.5-5.6 % Medical Emergencies . Who to Call and When: Medical Emergencies: If at any time you feel your situation is an emergency, please call 911 immediately. . Non-Emergent Contact Non-Emergency issues call your: Surgeon . "Provider Documentation" section prepared by Jg Roberts. . VTE Core Measure Inpt VTE Proph given/why not?: Other Anticoagulation, TLaura Ward, SCD's
[2017-05-16] MEDS: ASPIRIN 325 MG ECTAB PO SCH ×2 (08:48→22:08)
[2017-05-16] MEDS: FERROUS GLUCONATE 324 MG TAB PO SCH ×3 (08:48→17:38)
[2017-05-16] MEDS: MULTIVITAMIN TAB PO SCH (08:48)
[2017-05-16] MEDS: DOCUSATE SODIUM 100 MG CAP PO SCH ×2 (08:49→21:00)
[2017-05-16] MEDS: CHOLECALCIFEROL 400 INTER.UNIT TAB PO SCH (08:49)
[2017-05-16] MEDS: SERTRALINE HCL 100 MG TAB PO SCH (08:50)
[2017-05-16] MEDS: PANTOprazole SOD 40 MG TAB PO SCH (08:50)
[2017-05-16] MEDS: TAPENTADOL ER 50 MG TABCR PO SCH ×2 (08:56→22:08)
[2017-05-16 09:12] LABS: HEMATOCRIT 37.5 % (42-52); HEMOGLOBIN 13.1 g/dL (14.0-18.0); MEAN CELL VOLUME 96.2 fL (80-100); MEAN CORPUSCULAR HEMOGLOBIN 33.6 pg (25-34); MEAN CORPUSCULAR HGB CONC 34.9 g/dl (32-36); MEAN PLATELET VOLUME 8.9 fL (7.4-10.4); PLATELET COUNT 159 K/uL (130-400); RED CELL DISTRIBUTION WIDTH CV 13.1 % (11.5-14.5); RED CELL DISTRIBUTION WIDTH SD 45.3 fL (36.4-46.3); WHITE BLOOD COUNT 8.02 K/uL (4.8-10.8)
[2017-05-16 09:45] LABS: CALCIUM 8.7 mg/dl (8.5-10.1); CREATININE 0.77 mg/dl (0.60-1.40)
--- NOTE | 2017-05-16 09:46 | PROGRESS NOTE ---
DATE: 05/16/2017 SUBJECTIVE: A 51-year-old gentleman postop day 1 from right knee replacement. He is doing pretty well. Pain is controlled. Denies any chest pain or shortness of breath. Not feeling dizzy or lightheaded. OBJECTIVE: VITAL SIGNS: Temperature 36.9. Vital signs stable. GENERAL: Reveals a healthy, pleasant, middle-aged male. He is sitting up in bed and just finished breakfast and looks pretty comfortable. LUNGS: Clear to auscultation. HEART: Regular rate and rhythm. ABDOMEN: Soft, nontender, nondistended. EXTREMITIES: Grossly neurovascularly intact except as follows: Examination of the right leg reveals the dressing to be clean, dry, and intact. He can dorsiflex and plantarflex his foot appropriately. He is neurologically intact. LABORATORY DATA: Hemoglobin 13.1, hematocrit 37.5. Electrolytes are pending. ASSESSMENT: A 51-year-old gentleman postop day 1 from right knee replacement, doing pretty well. Pain is controlled. He is neurologically intact. PLAN: 1. DVT prophylaxis including thigh-high TEDs, SCDs, and aspirin twice a day. 2. PT/OT. Weight bear as tolerated. Right total knee protocol. 3. Pain control. Doing well with current pain regimen. 4. Disposition: He is planning to be discharged to home with some home health once adequately recovered.
--- NOTE | 2017-05-16 13:43 | Anesthesiology Progress Note ---
Anesthesia Post Op Note Date & Time May 16, 2017 at 13:41 Vital Signs Pain Intensity: 8.0 Vital Signs Past 12 Hours Date Time Temp Pulse Resp B/P (MAP) Pulse Ox O2 Delivery O2 Flow Rate FiO2 05/16/17 07:45 Room Air 05/16/17 07:08 36.9 76 16 108/72 (84) 94 Room Air 05/16/17 03:53 37.1 69 18 113/77 (89) 94 Room Air Notes Mental Status: alert / awake / arousable, participated in evaluation Pt Amnestic to Procedure: Yes Nausea / Vomiting: adequately controlled Pain: adequately controlled Airway Patency, RR, SpO2: stable & adequate BP & HR: stable & adequate Hydration State: stable & adequate Awake, alert OOB in chair. Pain controlled with medication. VSS. No complaints with anesthesia care.
[2017-05-16 13:44] VITALS: BP 122/76; PULSE 90; TEMP 37.6; O2SAT 96
[2017-05-16 13:47] VITALS: TEMP 37.3
[2017-05-16 14:49] VITALS: BP 114/62; PULSE 92; TEMP 37.6; O2SAT 96
[2017-05-16] MEDS: SENNA 8.6 MG TAB PO SCH (21:00)
[2017-05-16 22:41] VITALS: BP 145/82; PULSE 89; TEMP 37.5; O2SAT 98
[2017-05-17] MEDS: ACETAMINOPHEN 500 MG TAB PO SCH ×2 (05:37→13:24)
[2017-05-17] MEDS: KETOROLAC TROMETHAMINE 30 MG/ML VIAL IV. SCH ×2 (05:37→11:37)
[2017-05-17] MEDS: OXYCODONE HCL IR 5 MG TAB (IMMEDIATE RELEASE) PO PRN ×2 (05:38→13:24)
[2017-05-17 06:32] VITALS: BP 135/83; PULSE 89; TEMP 37.6; O2SAT 95
[2017-05-17] MEDS: CHOLECALCIFEROL 400 INTER.UNIT TAB PO SCH (08:03)
[2017-05-17] MEDS: DOCUSATE SODIUM 100 MG CAP PO SCH (08:03)
[2017-05-17] MEDS: SERTRALINE HCL 100 MG TAB PO SCH (08:03)
[2017-05-17] MEDS: PANTOprazole SOD 40 MG TAB PO SCH (08:03)
[2017-05-17] MEDS: MULTIVITAMIN TAB PO SCH (08:03)
[2017-05-17] MEDS: FERROUS GLUCONATE 324 MG TAB PO SCH ×2 (08:03→13:23)
[2017-05-17] MEDS: CHECK SCOPOLAMINE PATCH PLACEMENT SCH (08:04)
[2017-05-17] MEDS: TAPENTADOL ER 50 MG TABCR PO SCH (08:11)
[2017-05-17 08:14] VITALS: TEMP 36.8
[2017-05-17] MEDS: ASPIRIN 325 MG ECTAB PO SCH (08:26)
--- NOTE | 2017-05-17 09:32 | PROGRESS NOTE ---
DATE: 05/17/2017 SUBJECTIVE: A 51-year-old gentleman postop day #2 from a right knee replacement. Pretty rough morning, but feeling better now. No chest pain or shortness of breath. Not feeling dizzy or lightheaded. OBJECTIVE: VITAL SIGNS: Temperature 36.8. Vital signs stable. GENERAL: Physical examination reveals a healthy, pleasant, middle-aged male. He is sitting up in bed and looks reasonably comfortable. LUNGS: Clear to auscultation. HEART: Regular rate and rhythm. ABDOMEN: Soft, nontender, and nondistended. EXTREMITIES: Grossly neurovascularly intact except as follows: Examination of the right leg reveals the dressing to be in place. Just a slight bit of bloody drainage. Leg is well aligned. He can dorsiflex and plantarflex his foot appropriately. He is neurologically intact. ASSESSMENT: A 51-year-old gentleman postop day #2 from a right knee replacement, doing pretty well. Some pain to be expected, but reasonably managed with pain control. PLAN: 1. DVT prophylaxis including thigh-high TEDs, SCDs, and aspirin twice a day. 2. PT/OT. Weight bear as tolerated. Right total knee protocol. 3. Pain control. Doing pretty well with current pain regimen. 4. Disposition: He is planning to be discharged to home with some home health later day.
[2017-05-17 10:51] VITALS: BP 135/83; PULSE 89; TEMP 36.8; O2SAT 95
--- NOTE | 2017-05-21 16:50 | DISCHARGE SUMMARY ---
ADMITTING PHYSICIAN AND SURGEON: Dr. Roberts. ADMITTING DIAGNOSIS: Right knee degenerative joint disease. SURGERY PERFORMED: Right total knee arthroplasty. SECONDARY DIAGNOSES: Ulcerative colitis, colon cancer, sleep apnea, obesity. CONSULTS: None obtained. HISTORY AND PHYSICAL EXAMINATION: Well documented in patient's chart. HOSPITAL COURSE: The patient was admitted on 05/15/2017 and underwent total knee arthroplasty. He tolerated the procedure well. There were no complications. He was transferred to the PACU postoperatively and later to the orthopedic floor for further care. He was given Ancef for antibiotic prophylaxis, DARIA stockings, SCDs and aspirin for DVT prophylaxis. His hemoglobin, hematocrit and vital signs were monitored during his hospital stay and remained stable and did not require any blood transfusions. There were no complications. By postoperative day 2, he was tolerating a regular diet, pain was controlled with oral pain medicine. He was participating in physical therapy. On postop day 2, he was discharged home and set up with home health services, given printed discharge instructions including new prescriptions for extra strength Tylenol, aspirin 325 mg b.i.d., oxycodone. Continue his home medications. Continue physical therapy, weightbearing as tolerated. DARIA stockings. Follow up in 10-12 days or sooner if there are any problems or concerns.
== END 2017-05-17 14:51 | disposition home health service (06) | DRG 470 ==
LOC: C.ACU 10:51 → C.MSW 11:30 → ENRESERV 16:21
PROVIDERS: ADMIT Orthopaedic Surgery Sports Medicine; ATTEND Orthopaedic Surgery Sports Medicine
PROC: 0SRC0J9 Replacement of Right Knee Joint with Synthetic Substitute, Cemented, Open Approach (ICD-10-PCS; principal; 2017-05-15 13:00)
DX: M17.11 Unilateral primary osteoarthritis, right knee (principal); K51.90 Ulcerative colitis, unspecified, without complications; Z68.42 Body mass index [BMI] 45.0-49.9, adult; Z85.038 Personal history of other malignant neoplasm of large intestine; E66.9 Obesity, unspecified

== ENCOUNTER 2021-07-12 10:21 | Observation (INO) ==
--- NOTE | 2021-06-02 15:39 | PAT Medication Instructions ---
Medication Instructions Date of Service June 02, 2021 Home Medications Medication Instructions Recorded albuterol sulfate 90 mcg/actuation 2 puffs INH 6XD PRN #6.7 gm 04/14/21 aerosol inhaler benzonatate 100 mg capsule 100 mg PO TID PRN #15 cap 04/14/21 sertraline 100 mg tablet 100 mg PO QAM meloxicam 15 mg tablet 15 mg PO QAM acetaminophen 500 mg tablet (Tylenol Extra Strength) 1,000 mg PO DIRECTED PRN albuterol sulfate 90 mcg/actuation aerosol inhaler 2 puffs INH 6XD PRN benzonatate 100 mg capsule 100 mg PO TID PRN Nervive 1 tab PO QAM ASK your surgeon for instructions meloxicam 15 mg tablet 15 mg PO QAM STOP taking 2 weeks before surgery Nervive 1 tab PO QAM DO NOT take the morning of surgery benzonatate 100 mg capsule 100 mg PO TID PRN Take morning of surgery With a small sip of water, OTHERWISE NOTHING TO EAT OR DRINK AFTER MIDNIGHT: sertraline 100 mg tablet 100 mg PO QAM acetaminophen 500 mg tablet (Tylenol Extra Strength) 1,000 mg PO DIRECTED PRN (okay to take up to 4 hours prior to surgery if needed) albuterol sulfate 90 mcg/actuation aerosol inhaler 2 puffs INH 6XD PRN(use if needed; please bring with you to hospital day of surgery if possible) Take evening before surgery acetaminophen 500 mg tablet (Tylenol Extra Strength) 1,000 mg PO DIRECTED PRN (if needed) albuterol sulfate 90 mcg/actuation aerosol inhaler 2 puffs INH 6XD PRN(if needed) benzonatate 100 mg capsule 100 mg PO TID PRN(if needed) Other Notes If you have any questions please call us at [phone] or [phone] or [phone] or [phone]
--- NOTE | 2021-06-06 10:00 | Anesthesiology Consultation ---
Date of Service June 06, 2021 Assessment & Plan (1) Encounter for pre-operative examination: Patient states per discussion with surgeon he will be staying overnight, confirmed he is not marked for outpatient joint on booking sheet. - COVID screening: Per assessment on 06/06/2021: Travel screen negative, no known COVID-19 positive contacts or current COVID-19 related symptoms in past 2 weeks. Patient vaccinated. Surgeon arranging preop COVID testing, scheduled 07/08/2021. Awaiting results. Chart Review Chart Review: Acceptable Risk for Surgery and Patient seen in Pre Admission Testing Teaching & Discussion Pre-Anesthesia Teaching/Discussion Notes: Instructed NPO after midnight before surgery, except medications with 15 cc of water. Medication instructions provided according to the PAT guidelines. History Surgery Operation Date: 07/12/21 07:00 Proposed Procedures p Left Total Knee Replacement - Jg Roberts MD Height/Weight Height: 5 ft 6 in Weight: 129.1 kg Allergies Allergy/AdvReac Type Severity Reaction Status Date / Time codeine AdvReac Intermediate headache Verified 06/06/21 08:55 Medications Home Medications Medication Instructions Recorded Confirmed Last Taken sertraline 100 mg tablet 100 mg PO QAM 08/21/18 06/06/21 04/14/21 meloxicam 15 mg tablet 15 mg PO QAM 02/24/19 06/06/21 04/14/21 acetaminophen 500 mg tablet 1,000 mg PO DIRECTED PRN 04/14/21 06/06/21 04/14/21 16:00 (Tylenol Extra Strength) albuterol sulfate 90 mcg/actuation 2 puffs INH 6XD PRN #6.7 gm 04/14/21 06/06/21 Unknown aerosol inhaler benzonatate 100 mg capsule 100 mg PO TID PRN #15 cap 04/14/21 06/06/21 Unknown Nervive 1 tab PO QAM 06/02/21 06/06/21 Unknown Past Medical History Medical History (Updated 06/06/21 @ 10:12 by Hailey Renee PA-C) Depression History of colon cancer diagnosed at age of 28--sx Left knee DJD Lumbar herniated disc Morbid obesity with BMI of 40.0-44.9, adult Osteoarthritis Sleep apnea cpap-compliant Ulcerative colitis Patient denies h/o stroke, seizures, heart attack, heart failure, DM, HTN, blood clots or blood transfusions. Exercise / Class Metabolic Activity II 4-5 Yardwork/Stairs/Walk up hill (denies CP or SOB with 1 FOS) Past Family History Family History Other No family history of adverse response to anesthesia Past Surgical History Surgical History (Updated 06/06/21 @ 09:54 by Hailey Renee PA-C) History of anesthesia reaction slow waking up History of colectomy @ [facility] 1993 WITH TEMP. ILEOSTOMY History of colonoscopy History of esophagogastroduodenoscopy (EGD) History of hernia repair History of orchiectomy, unilateral left. 03/12/2019: Grade 2 view, MAC#3, ETT#7.5 atraumatic x 1. No postop issues per anesthesia progress note. History of repair of left rotator cuff History of reversal of ileostomy History of strabismus surgery left History of surgery salivary gland removed History of tonsillectomy History of tooth extraction History of wisdom tooth extraction Hx of vasectomy Status post right knee replacement 05/15/2017: Grade 1 view, glidescope #4, ETT#8.0 (elective glidescope intubation) x 1 atraumatic + PNB. No postop issues per anesthesia progress note. Past Anesthesia History No Family Hx of Anesthesia Complications and Other (slow to wake) History of PONV No Hx of PONV and No Hx of Motion Sickness Social History Smoking Status: Never smoker Do You Dip or Chew Tobacco: No Hx Alcohol Use: Yes Alcohol type: beer alcohol intake frequency: a few times a month Hx Substance Use: No substance use type: does not use Review of Systems Patient denies chest pain, shortness of breath, dyspnea on exertion, reflux, fever, chills, cough, wheezing, or palpitations. Physical Exam Vital Signs Vitals BP 144/83 P 80 TEMP 99.1 SP02 96% on RA RESP 17 Physical Full cervical extension range of motion without pain Full TMJ range of motion TMD 3.5 finger breaths Mallampati Score 3 Dentition: intact, one crown lower left back and one missing lower right back; denies chipped or loose teeth, implants or bridges Lungs: normal respiratory effort. Clear throughout to auscultation, no adventitious breath sounds Cardiac: regular rate and rhythm, no murmurs noted Carotid arteries: negative bruit bilat Extremities: no distal extremity edema Lab Results Anesthesia Preop Results Results Anesthesia Widget: WBC 8.65 K/uL (4.8-10.8) 06/06/21 Hgb 14.4 g/dL (14.0-18.0) 06/06/21 Hct 41.8 % (42-52) L 06/06/21 Plt 225 K/uL (130-400) 06/06/21 Na 136 mmol/L (136-145) 06/06/21 K 4.7 mmol/L (3.5-5.1) 06/06/21 Cl 103 mmol/L (98-107) 06/06/21 CO2 27 mmol/L (21-32) 06/06/21 BUN 10 mg/dl (6-23) 06/06/21 Creat 0.74 mg/dl (0.6-1.4) 06/06/21 Glucose Level 102 mg/dl (70-99(Fasting)) H 06/06/21 PT 10.4 Seconds (9.0-12.0) 06/06/21 PTT 23.4 Seconds (21.0-31.0) 06/06/21 INR 1.0 (0.9-1.1) 06/06/21 Blood Type A Positive 06/06/21 Antibody Screen NEGATIVE 06/06/21 Testing Electrocardiogram Date: 06/06/21 NSR, rate 73 bpm Incomplete RBBB Chest X-Ray Date: 06/06/21 Frontal and lateral radiographs of the chest demonstrate the cardiomediastinal silhouette to be within normal limits. The lungs are clear of alveolar opacitie s. There is no evidence for effusion bilaterally. There is no evidence for vascular congestion. There is no acute osseous pathology. IMPRESSION: 1. No acute cardiopulmonary disease. Other Testing Chest CTA 04/14/2021 FINDINGS: Lungs and pleura: Atelectasis versus scarring is seen in the dependent portions of the lungs. Heart and pericardium: Heart size is normal. No pericardial effusion. Vessels: No evidence of pulmonary embolism. Mediastinum and ana: Unremarkable. Chest wall and lower neck: Unremarkable. Abdomen: Unremarkable. Bones: Degenerative changes in the thoracic spine. IMPRESSION: 1. No evidence of pulmonary embolism. 2. Bibasilar atelectasis. Superimposed pneumonia cannot be entirely excluded.
--- NOTE | 2021-07-09 19:15 | History and Physical Report ---
DATE OF ADMISSION: 07/12/2021 CHIEF COMPLAINT: Persistent progressive left knee pain. HISTORY OF PRESENT ILLNESS: The patient is a 55-year-old gentleman well known to me from a previous right knee replacement done about 2-1/2 years ago. He has got known history of ulcerative colitis. He has got a long history of knee problems. The right knee has done well, but he continues to be noyola ited by left knee pain. ____ shots in his knee, which has become less successful over time. Takes M obic with just a little bit of relief. Pain has become more disabling. He has been looking for a ti me to get his knee fixed and would like to proceed with this. PAST MEDICAL HISTORY: 1. Obesity with BMI of 46. 2. Sleep apnea, CPAP machine. 3. Ulcerative colitis, status post colectomy. 4. Low back pain/sciatica. 5. Testicular cancer. PAST SURGICAL HISTORY: Includes: 1. Colectomy. 2. Shoulder surgery. 3. Right knee replacement done on 05/15/2017. 4. Testicular surgery for cancer. 5. Neck surgery. 6. Eye surgery. ALLERGIES: None. CURRENT MEDICATIONS: Include: 1. Sertraline. 2. Meloxicam. 3. . SOCIAL HISTORY: A 55-year-old male. Lives in [place]. He works with the [employer] and work at a __ ___ company. Does not smoke. One drink per week. FAMILY HISTORY: Noncontributory. REVIEW OF SYSTEMS: Negative for diabetes, neurologic problem, vascular problems or bleeding disorder s. No chest pain or shortness of breath. No history of DVT or PE. He does have sleep apnea with CP AP machine. PHYSICAL EXAMINATION: GENERAL: Shows a pleasant middle-aged male. Looks to be in reasonably good health. HEENT: Benign. NECK: Supple. No lymphadenopathy. LUNGS: Clear to auscultation. HEART: Regular rate and rhythm. ABDOMEN: Soft, nontender, nondistended. EXTREMITIES: Grossly neurovascularly intact except as follows. Examination of the left knee revealed patient ambulates with a bit of a limp. He has got varus align ment to his knee with a little bit of a varus thrust. He is tender with medial joint line. Small kn ee effusion. Range of motion is near full extension to 125 degrees of flexion. There is no instabil ity. No pain with hip motion. Examination of the right knee reveals a well-healed incision. He has got anatomic alignment to his k nee. Range of motion is 0 to 120. X-RAYS: X-rays of the left knee reveal advanced left knee degenerative joint disease. He has got co mplete loss of medial joint space. He has got subchondral sclerosis. He has got some tibial femoral subluxation. Got osteophytes in all 3 compartments. ASSESSMENT: A 55-year-old gentleman with a history of ulcerative colitis, obesity, sleep apnea, and status post right knee replacement 2-1/2 years ago with advanced left knee degenerative joint disease . He has failed conservative treatment and would like to have his left knee replaced. PLAN: We will take him to operating room and do a left total knee replacement. The risks and benefi ts of this procedure were explained to the patient, it include, but not limited to DVT, PE, , in fection, neurological injury, vascular injury, bleeding problem, pain, limited range of motion, stiff ness, failure to relieve symptoms, incomplete relief of symptoms, need for further surgery in the fut ure, fracture, leg length inequality, nerve palsy, etc. The patient understands and desires to proce ed. Informed consent was obtained. He is going to be discharged to home using [facility]. We will likely put some va ncomycin in cement due to his autoimmune disorder. He will bring his CPAP machine to the hospital. Job ID: [id number]
[~2021-07-12 10:21] MED LIST changes: -BUPIVACAINE LIPOSOME 266 MG, BUPIVACAINE/EPINEPHRINE INJ 50 ML, SODIUM CHLORIDE 0.9% PF... INFIL SCH; +BUPIVACAINE LIPOSOME/PF 266 MG, BUPIVACAINE/EPINEPHRINE 50 ML, SODIUM CHLORIDE 0.9% 30 ... INFIL SCH; -CEFAZOLIN 3000MG IV PUSH 15 ML IV SCH; -DICL-201 PO; +EPINEPHrine INJ 1 MG/ML AMP ONE; -ERGO500037 PO; -GABAPENTIN 300 MG CAP PO SCH; +GABAPENTIN 900 MG DOSE PO SCH; -LACTATED RINGER'S 1000ML 1,000 ML IV SCH; -LACTATED RINGER'S 1000ML 500 ML IV SCH; -LACTATED RINGER'S 1000ML IV SCH; +LR 500ML BOLUS, THEN 15ML/HR IV SCH; +LR 60ML/HR IV SCH; -METOCLOPRAMIDE HCL 10 MG TAB PO SCH; +METOCLOPRAMIDE HCL 10 MG TABLET PO SCH; +ROPIVACAINE 0.5% 5 MG/ML 30 ML VIAL ONE; -SCOPOLAMINE 1.5 MG TDSY TD SCH; -SERT100T PO; +Scopolamine 1 MG TDSY TD SCH; +TRANEXAMIC ACID 1,000 MG **IV Intra-op IV SCH; -TRANEXAMIC ACID INJ 1,000 MG in SYRINGE 0 ML IV SCH
[2021-07-12] MEDS ORDERED: BUPIVACAINE 0.5 % 5 MG/1 ML PF 10ML VIAL ONE (10:27)
--- NOTE | 2021-07-12 11:26 | History & Physical Bridge Note ---
Date of Service July 12, 2021 History & Physical Bridge Note I have examined the patient, reviewed the History & Physical and in the interval since the performance of the History & Physical I have noted the following changes of clinical significance: no changes noted
[2021-07-12] MEDS ORDERED: ePHEDrine sulfate 50 MG/ML AMP IV PRN (12:19)
[2021-07-12] MEDS ORDERED: ONDANSETRON INJ 2 MG/ML 2 ML VIAL IV PRN ×2 (12:19→17:50)
[2021-07-12] MEDS ORDERED: ATROPINE SULFATE 0.1 MG/ML 10ML SYR IV PRN (12:19)
[2021-07-12] MEDS ORDERED: fentaNYL citrate 100 MCG/2 ML VIAL IV PRN (12:19)
[2021-07-12] MEDS ORDERED: fentaNYL citrate 100 MCG/2 ML VIAL ONE (12:30)
[2021-07-12] MEDS ORDERED: MIDAZOLAM HCL 1 MG/ML 2ML VIAL ONE ×2 (12:30→14:02)
[2021-07-12] MEDS ORDERED: EPINEPHrine INJ 1 MG/ML AMP ONE (13:29)
[2021-07-12] MEDS ORDERED: BUPIVACAINE LIPOSOME 1.3% 266 MG/20 ML VIAL ONE (13:29)
[2021-07-12] MEDS ORDERED: SODIUM CHLORIDE 0.9% PF 50 ML VIAL ONE (13:29)
[2021-07-12] MEDS ORDERED: BUPIVACAINE 0.25% 30 ML VIAL ONE (13:29)
[2021-07-12] MEDS ORDERED: LIDOCAINE 2% 2 ML VIAL/AMP(20MG/ML) INFIL ONE (14:02)
[2021-07-12] MEDS ORDERED: PROPOFOL IV EMULSION 10 MG/ML 20 ML VIAL IV ONE ×9 (14:02→15:31)
[2021-07-12] MEDS ORDERED: ONDANSETRON INJ 2 MG/ML 2 ML VIAL ONE (14:02)
[2021-07-12] MEDS ORDERED: VANCOMYCIN HCL 1000MG/20ML VIAL ONE (14:40)
[2021-07-12] MEDS ORDERED: KETOROLAC 30 MG/ML VIAL ONE (15:29)
[2021-07-12] MEDS ORDERED: PROPOFOL IV EMULSION 10 MG/ML 100 ML VIAL IV ONE (15:31)
--- NOTE | 2021-07-12 16:10 | Post Operative Brief Note ---
PG Immediate Post Op with CF Date of Surgery July 12, 2021 Pre & Post Diagnosis Operation Date: 07/12/21 12:30 Pre-Op Diagnosis: Left Knee Advanced Degenerative Joint Disease Post-Op Diagnosis: Left Knee Advanced Degenerative Joint Disease I identified the patient and participated in the time-out.: Yes Procedure Operation Date: 07/12/21 12:30 Actual Procedures p Left Total Knee Arthroplasty(Left) - Jg Roberts MD Surgeon Jg Roberts MD Histotechnician Alex Morales PA-C Estimated Blood Loss 100 Findings Consistent with Post-Op Diagnosis Specimens Specimen Description: A. Left Knee Bone and Tissue Drains Velasquez Catheter Anesthesia Type Spinal MAC Complications none Disposition Accompanied Patient To Recovery: No
--- NOTE | 2021-07-12 16:30 | XRay Report ---
LEFT KNEE 2 VIEWS History: Left total knee arthroplasty. Degenerative arthritis. Postop. FINDINGS: The patient is status post a left total knee arthroplasty. The hardware is intact. No fract ure or dislocation. Skin narda are in place. IMPRESSION: Left total knee arthroplasty. No evidence for hardware complication. ACT 112: Negative or not required by law. Electronically signed by: Leonardo Parsons M.D. 07/12/2021 4:28 PM
--- NOTE | 2021-07-12 16:55 | Anesthesiology Progress Note ---
Date of Service July 12, 2021 Anesthesia Post Procedure Vital Signs Vital Signs: Temp Pulse Pulse Resp BP Pulse Ox 07/12/21 16:45 75 16 104/68 94 07/12/21 16:35 72 12 106/56 L 95 07/12/21 16:25 62 16 101/63 99 07/12/21 16:20 97/56 L 07/12/21 16:15 62 14 87/58 L 99 07/12/21 16:05 36.2 C L 72 18 90/53 L 96 07/12/21 10:53 36.9 C 82 20 125/89 96 Pain Intensity Left Knee: Pain Intensity: 1 Transfer of Care Handoff Completed per policy Notes Mental Status: alert / awake / arousable and participated in evaluation Patient Amnestic to Procedure: Yes Nausea / Vomiting: adequately controlled Pain: adequately controlled Airway Patency, RR, SpO2: stable & adequate BP & HR: stable & adequate Hydration State: stable & adequate Neuraxial Anesthesia: was administered and sensory block is resolving Anesthetic Complications: no major complications apparent and Pt Satisfied with anesthetic care
[2021-07-12] MEDS ORDERED: diphenhydrAMINE Capsule 25 MG CAP PO PRN (17:50)
[2021-07-12] MEDS ORDERED: ALUMINUM/MAGNESIUM SUSP 30 ML UDC PO PRN (17:50)
[2021-07-12] MEDS ORDERED: bisacodyL 10 MG SUPP PR PRN (17:50)
[2021-07-12] MEDS ORDERED: HYDROmorphone INJ 0.5 MG/0.5 ML SYR IV PRN (17:50)
[2021-07-12] MEDS ORDERED: BENZONATATE 100 MG CAPSULE PO PRN (17:50)
[2021-07-12] MEDS ORDERED: METOCLOPRAMIDE HCL INJ 5 MG/ML 2 ML VIAL IV PRN (17:50)
[2021-07-12] MEDS ORDERED: NALOXONE HCL 0.4 MG/1 ML VIAL/CARP IV PRN (17:50)
[2021-07-12] MEDS ORDERED: ALBUTEROL HFA 8 GM INHALER INH PRN (17:50)
[2021-07-12] MEDS ORDERED: MAGNESIUM HYDROXIDE SUSP 30 ML UDC PO PRN (17:50)
--- NOTE | 2021-07-12 17:57 | Operative Report ---
PG Post Operative Report Pre & Post Diagnosis Operation Date: 07/12/21 12:30 Pre-Op Diagnosis: Left Knee Advanced Degenerative Joint Disease Post-Op Diagnosis: Left Knee Advanced Degenerative Joint Disease I identified the patient and participated in the time-out.: Yes Procedure Operation Date: 07/12/21 12:30 Actual Procedures p Left Total Knee Arthroplasty(Left) - Jg Roberts MD Surgeon Jg Roberts MD Pmp Alex Morales PA-C Estimated Blood Loss 100 Findings Consistent with Post-Op Diagnosis Operative findings revealed advanced left knee DJD. He had extensive grade 4 odwa-fc-alor disease and eburnation of the entire medial compartment of his knee. A less severe grade 4 changes elsewhere. He had a varus deformity to his knee with a flexion contracture. Moderate to large knee joint effusion. Fluids 1600 cc Specimens Left knee sent for pathology. Anesthesia Type Spinal MAC Complications none Disposition Accompanied Patient To Recovery: No Indications Patient is a 55-year-old gentleman is a long history of knee problems. He has been through extensive conservative treatment in the past. He had his right knee replaced about 4 years ago and is done well from this. Continued be limited by left knee pain discomfort. Failed all conservative measures. Elected proceed with left total knee arthroplasty. Description of Procedure Operative implants consist of: 1. Biomet Vanguard size 67.5 left posterior stabilized femoral component. 2. Biomet size 75 tibial tray. 3. 12 mm posterior stabilized polyethylene insert. 4. 34 x 8 and half all polypatella. The patient was taken the operating, identified, placed on the operating table supine position but all contact areas were properly padded. IV antibiotics tried by anesthesia team. A spinal anesthetic and abductor canal block had provided holding area. Velasquez catheter was placed in sterile fashion. A left thigh turn was then placed in the left lower extremities and prepped and draped in usual sterile fashion. The left leg was elevated exsanguinated with use of an Esmarch in terms playset 300 mmHg. An anterior approach left knee was then performed through longitudinal incision centered over the patella. Sharp dissection was got through subcutaneous tissue down to level of the extensor mechanism. A medial parapatellar arthrotomy incision was made. Some subperiosteal dissection was carried out medially. The fat pad was resected beneath patella tendon. The lateral patellofemoral ligament was released. Patella was subluxated laterally and the knee was flexed. The osteophytes were taken off distal femur. The ACL and PCL were then released in the distal femur. His ACL was essentially absent. The external tibial alignment jig cuff was attempted to place on the interface the tibia. He had alert very large Amina-Schlatter ossicle which kept me from being able to do this in a predictable fashion. Therefore I elected proceed with intramedullary instrumentation of the tibia. The tibial eminence was resected. The IM nick was placed. The cutting guide was placed in the IM nick and the proximal tibial cut was made remove about 2 mm of bone from most deficient aspect medial tibial plateau. The tibia sized to a size 75. Attention drawn the femur. The distal femur examined the sharp drop with intramedullary canal was suction. A left 6 degree valgus cutting guide was placed. Distal femoral cutting block was pinned in place. Distal femoral cut was made to take an additional 3 mm bone off distal femur. The femur was then sized to a size 67.5. The AP cutting block was pinned parallel to the epicondylar axis which was 4 degrees of external rotation. The anterior cut, anterior chamfer, posterior cut, posterior chamfer cuts were made. The box cutting guide was placed in just slight lateral box cut was made. The knee was flexed for the remnants of the medial and lateral menisci were excised. The osteophytes were taken off the posterior aspect of femur. A trial femoral component was placed. The tibial tray was pinned in maximum external rotation and the drill and stem punch were used. Defect in proximal tibia was significantly. Knee was then trialed and the 12 mm insert fit most appropriately. Attention drawn to the patella. The patella was cleaned of all soft tissues. Patella thickness measured 22 mm in thickness was cut down to 14. Was sized to a size 34 patella. The lug holes were drilled for the 34 patella. The lateral aspect is moved. Patella button was placed. Knee was taken through range of motion patella tracked nicely with no thumbs test. Attention drawn to placing the permanent components. All trial components were removed. Bone plug was placed in the distal femur limit blood loss. Double batch Palacos G cement was mixed. I did add an additional gram of vancomycin due to his history of ulcerative ulcerative colitis and autoimmune compromise. A BiomHoneyguard size 67.5 left posterior stabilized femoral component, size 75 tibial tray, 12 mm posterior stabilized polyethylene insert, and a 34 by enough all polypatella then cemented in place. Knee was brought out into full extension until cement hardened. Final cement check was then performed. The pericapsular tissues were injected with total 100 cc of combination of 20 cc of Exparel, 30 cc normal saline, 50 cc of quarter percent Marcaine with epinephrine. Patient did receive 1 g tranexamic acid. The tourniquet was then let down for final turn time of 75 minutes. Hemostasis assured use electrocautery. The extensor mechanism then closed with combination 1 PDS suture #1 Vicryl suture in [id number] fashion. The extensor mechanism was checked and found to be intact. The subcutaneous tissue then closed with 2 Dexon suture in a buried interrupted fashion skin was closed skin narda. Legs then cleaned dried and sterile dressing both Xeroform, 4 x 4's, sterile cast padding, ABD pad pad, Eladio bandage were applied. Patient was then transferred to the recovery room in stable condition. Patient tolerated the procedure well and there were no complications. Alex Morales, my physician phlebotomist lab assistant, was present for the entire procedure. His assistance was essential and required for appropriate patient positioning, prepping and draping, surgical exposure, performing the technical details of the operation, placement the implants, closure of the wound, and placement of the sterile bandage. I attest to the content of the Intraoperative Record and any orders documented therein. Any exceptions are noted below.
[2021-07-12] MEDS: Scopolamine CHECK PATCH PLACEMENT SCH (18:17)
[2021-07-12] MEDS: SODIUM CHLORIDE 0.9% 1000ML 1,000 ML IV SCH (18:34)
[2021-07-12] MEDS ORDERED: ONDANSETRON 4 MG OD TAB PO PRN (18:41)
[2021-07-12] MEDS: KETOROLAC 30 MG/ML VIAL IV SCH (18:47)
[2021-07-12] MEDS: ASCORBIC ACID 500 MG TAB PO SCH (18:48)
[2021-07-12] MEDS: ACETAMINOPHEN 500 MG TAB PO SCH (19:53)
[2021-07-12] MEDS ORDERED: SENNA 8.6 MG TAB PO SCH (21:00)
[2021-07-12] MEDS ORDERED: TAMSULOSIN HCL 0.4 MG CAP PO SCH (21:00)
[2021-07-12] MEDS: ASPIRIN 81 MG ECTAB PO SCH (21:53)
[2021-07-12] MEDS: DOCUSATE SODIUM 100 MG CAP PO SCH (21:53)
[2021-07-12] MEDS: ceFAZolin 2000MG 2,000 MG/15 ML SYR IV SCH (21:54)
[2021-07-12] MEDS: TAPENTADOL HCL ER 50 MG TABCR PO SCH (21:56)
[2021-07-12] MEDS ORDERED: TRANEXAMIC ACID / 0.7% NACL 1,000 MG/100 ML BAG IV SCH (22:00)
[2021-07-13] MEDS: KETOROLAC 30 MG/ML VIAL IV SCH ×3 (00:51→13:29)
[2021-07-13] MEDS: Scopolamine CHECK PATCH PLACEMENT SCH ×3 (00:51→16:41)
[2021-07-13] MEDS: HYDROmorphone HCL 2 MG TAB PO PRN ×2 (03:58→11:36)
[2021-07-13] MEDS: ACETAMINOPHEN 500 MG TAB PO SCH ×2 (06:05→13:30)
[2021-07-13] MEDS: ceFAZolin 2000MG 2,000 MG/15 ML SYR IV SCH (06:08)
[2021-07-13] MEDS: SODIUM CHLORIDE 0.9% 1000ML 1,000 ML IV SCH (06:43)
[2021-07-13 06:53] LABS: Hematocrit (blood only) 34.8 % (42-52); Hemoglobin 12.1 g/dL (14.0-18.0); Mean Corpuscular Hemoglobin 33.8 pg (25-34); Mean Corpuscular Hgb Conc 34.8 g/dL (32-36); Mean Corpuscular Volume 97.2 fL (80-100); Mean Platelet Volume 8.9 fL (7.4-10.4); Platelet Count 142 K/uL (130-400); RDW Standard Deviation 45.4 fL (36.4-46.3); Red Blood Count 3.58 M/uL (4.7-6.1); White Blood Count 5.19 K/uL (4.8-10.8)
[2021-07-13 07:16] LABS: BUN Creatinine Ratio 18.6 (10-20); Calcium 8.7 mg/dl (8.5-10.1); Creatinine Clr Calc Pharmacy 153.6 ml/min; Potassium 4.3 mmol/L (3.5-5.1)
[2021-07-13] MEDS ORDERED: dexAMETHasone 10 MG in SYRINGE 0 ML IV SCH (08:00)
[2021-07-13] MEDS: ASCORBIC ACID 500 MG TAB PO SCH ×2 (08:21→17:09)
[2021-07-13] MEDS: TAPENTADOL HCL ER 50 MG TABCR PO SCH (08:21)
[2021-07-13] MEDS: ASPIRIN 81 MG ECTAB PO SCH (08:21)
[2021-07-13] MEDS: DOCUSATE SODIUM 100 MG CAP PO SCH (08:22)
[2021-07-13] MEDS ORDERED: SERTRALINE HCL 100 MG TABLET PO SCH (09:00)
[2021-07-13] MEDS ORDERED: DOCUSATE SODIUM/SENNA 50/8.6MG TAB PO SCH (09:00)
[2021-07-13] MEDS ORDERED: NERVIVE PO SCH (09:00)
[2021-07-13] MEDS ORDERED: MULTIVITAMIN TAB PO SCH (09:00)
--- NOTE | 2021-07-13 11:09 | Progress Notes ---
DATE OF SERVICE: 07/13/2021. SUBJECTIVE: A 55-year-old gentleman postoperative day 1 from left knee replacement. He is doing pre tty well. He had a pretty good night. Pain is controlled. No chest pain or shortness of breath. N ot feeling dizzy or lightheaded. OBJECTIVE: VITAL SIGNS: Temperature 36.9. Vital signs are stable. PHYSICAL EXAMINATION: GENERAL: Shows a pleasant middle-aged male. He is sitting up in bed and looks pretty comfortable. LUNGS: Clear to auscultation. HEART: Has a regular rate and rhythm. ABDOMEN: Soft, nontender, nondistended. EXTREMITIES: Grossly neurovascularly intact except as follows: Examination of the left leg reveals the dressing to be clean, dry and intact. There is no drainage. He can dorsiflex and plantarflex hi s foot appropriately. He is neurologically intact. LABORATORY DATA: Hemoglobin 12.1. Hematocrit 34.8. Electrolytes are stable. ASSESSMENT: A 55-year-old gentleman postoperative day 1 from left knee replacement, doing pretty wel l. Pain is controlled. He is neurologically intact. PLAN: 1. DVT prophylaxis includes thigh-high TEDs, SCDs, and aspirin twice a day. 2. PT, OT, weightbear as tolerated. Left total knee protocol. 3. Pain control, doing okay with current pain regimen. 4. Disposition: He is planning to be discharged to home with some home health. We will see how the rapy goes today. Hopefully, if he is doing okay, we will get him home after therapy. Job ID: [id number]
[2021-07-13 15:52] VITALS: BP 120/74; PULSE 80; TEMP 99; O2SAT 94
== END 2021-07-13 17:48 | disposition home health service (06) ==
LOC: ASU 10:21 → PACUINP 10:21 → 3E 17:47

== ENCOUNTER 2023-08-15 10:01 | Inpatient (IN) ==
[2023-08-15 11:40] LABS: Basophils # (auto) 0.03 K/uL (0.00-0.20); Basophils % (auto) 0.3 %; Eosinophils # (auto) 0.06 K/uL (0.00-0.50); Eosinophils % (auto) 0.7 %; Hematocrit (blood only) 48.5 % (42.0-52.0); Hemoglobin 17.6 g/dl (14.0-18.0); Immature Granulocytes # (auto) 0.04 K/uL (0.01-0.20); Immature Granulocytes % (auto) 0.5 %; Lymphocytes # (auto) 1.42 K/uL (1.20-3.40); Lymphocytes % (auto) 16.3 %; Mean Corpuscular Hemoglobin 33.5 pg (25.0-34.0); Mean Corpuscular Hgb Conc 36.3 g/dL (32.0-36.0); Mean Corpuscular Volume 92.4 fL (80.0-100.0); Mean Platelet Volume 8.9 fL (9.4-12.4); Monocytes # (auto) 1.12 K/uL (0.11-0.59); Monocytes % (auto) 12.8 %; Neutrophils # (auto) 6.06 K/uL (1.40-6.50); Neutrophils % (auto) 69.4 %; Platelet Count 299 K/uL (130-400); RDW Coefficient of Variation 12.7 % (11.5-14.5); RDW Standard Deviation 42.6 fL (36.4-46.3); Red Blood Count 5.25 M/uL (4.70-6.10); White Blood Count 8.73 K/ul (4.8-10.8)
[2023-08-15 11:56] LABS: Albumin Globulin Ratio 1.4 (0.9-2); Albumin Level 5.2 gm/dl (3.4-5.0); BUN Creatinine Ratio 38.1 (10-20); Bilirubin,Total 1.2 mg/dl (0.2-1.0); Calcium 11.3 mg/dl (8.6-10.3); Creatinine Clr Calc Pharmacy 70.9 ml/min; Est GFR (African American) 91.5 ml/min; Globulin 3.6 gm/dl (2.5-4.0); Magnesium 2.3 mg/dl (1.7-2.4); Potassium 5.4 mmol/L (3.5-5.1); Total Protein 8.8 gm/dl (6.0-8.3)
[2023-08-15] MEDS: SODIUM CHLORIDE 0.9% 1,000 ML IV ONE ×2 (12:05→14:35)
[2023-08-15] MEDS: ONDANSETRON INJ 2 MG/ML 2 ML VIAL IV STA (12:06)
[2023-08-15] MEDS: MoRPHine SULFATE 4 MG/ML 1 ML CARP\\VIAL IV STA (12:06)
--- NOTE | 2023-08-15 12:09 | Emergency Department Note ---
Impression & Plan Acute hyponatremia, Diarrhea, Generalized weakness, Acute hyperkalemia ED Provider Note NAME: RHETT COTTRELL AGE: 57 SEX: M : 1965 ARRIVES VIA: Ambulance INFORMANT: Patient, ED PROVIDER(S): Edgar Puga DO CHIEF COMPLAINT: Abdominal pain HPI: The patient is a 57-year-old male who presented to the emergency department for evaluation of abdominal pain. The patient noticed abdominal and back pain. He has had nausea vomiting and diarrhea. Symptoms began several days ago. He was in [place] at the time. The patient was seen at an outside emergency department. I did review the patient's laboratory and radiographic studies from that visit. He did have a CT of the abdomen and pelvis that did not show any signs of obstruction. The patient went to see his family doctor today because symptoms have not improved and was sent by ambulance to the emergency department for further evaluation. He denies having a fever. He has noticed some shortness of breath no chest pain. The patient also complains of significant muscle aches and dark urine. ROS: See above HPI for pertinent positives & negatives. A total of 10 systems reviewed and were otherwise negative. PAST MEDICAL HISTORY: See Below PAST SURGICAL HISTORY: See Below FAMILY HISTORY: See Below SOCIAL HISTORY: See Below HOME MEDICATIONS: See Below ALLERGIES: See Below VITALS: See Below PHYSICAL EXAMINATION: GENERAL: Patient is awake alert in no acute distress patient is resting comfortably and showing no signs of anxiety EYES: The conjunctivae are clear. The pupils are round and reactive. EARS, NOSE, MOUTH AND THROAT: The nose is without any evidence of any deformity. Mucous membranes are moist. Tongue is midline. NECK: The neck is nontender and supple. RESPIRATORY: Normal respiratory effort is noted there is no evidence of wheezing rhonchi or rales CARDIOVASCULAR: Regular rate and rhythm noted there no murmurs rubs or gallops normal S1 normal S2. GASTROINTESTINAL: The abdomen is soft and distended. There is significant left- sided tenderness to palpation and mild guarding in the left lower quadrant. MUSCULOSKELETAL/EXTREMITIES: There is no evidence of gross deformity full range of motion is noted in the hips and shoulders. SKIN: There is no obvious evidence of any rash. There are no petechiae, pallor or cyanosis noted. NEUROLOGIC: Patient is awake alert and oriented x3. The patient is able to hold each leg off the bed for greater than 5 seconds MEDICAL DECISION MAKING: The patient is a 57-year-old male who presented to the emergency department for an evaluation of generalized weakness and muscle aches. The patient's had ongoing diarrhea symptoms over the course of the last several days. The patient was treated with IV fluids in the emergency department. He was reevaluated multiple times. The patient was found have hyponatremia. He still had significant symptoms. Given his findings [facility] have agreed to evaluate the patient in the emergency department for further management and disposition. Triage Nursing notes reviewed. Prior medical records reviewed Vital Signs: reviewed and remarkable for tachycardia. Differential diagnosis: Etiologies such as appendicitis, diverticulitis, obstruction, inflammatory bowel disease, renal colic, PUD, biliary pathology, pancreatitis, mesenteric ischemia, aortic pathology, infections, genitourinary, UTI, perforated viscus, as well as others were entertained. ER treatment provided: See below Diagnostics interpreted by me: ECG: none Cardiac Monitoring: An order was placed for continuous cardiac monitoring. The monitor shows a rate of 82 bpm with sinus rhythm. Laboratory studies: As stated above and show below. Imaging studies: See below. Radiographic imaging was reviewed by myself Consultation(s): I discussed this case with Dr. Barrett who [facility]. Past Med/Surg History Medical History Morbid obesity with BMI of 40.0-44.9, adult Left knee DJD Encounter for pre-operative examination Osteoarthritis Lumbar herniated disc Ulcerative colitis History of colon cancer diagnosed at age of 28--sx Depression Sleep apnea cpap-compliant Surgical History Status post right knee replacement History of orchiectomy, unilateral left. 03/12/2019: Grade 2 view, MAC#3, ETT#7.5 atraumatic x 1. No postop issues per anesthesia progress note. Status post right knee replacement 05/15/2017: Grade 1 view, glidescope #4, ETT#8.0 (elective glidescope intubation) x 1 atraumatic + PNB. No postop issues per anesthesia progress note. History of reversal of ileostomy History of hernia repair History of anesthesia reaction slow waking up History of surgery salivary gland removed History of repair of left rotator cuff Hx of vasectomy History of colonoscopy History of esophagogastroduodenoscopy (EGD) History of colectomy @ [facility] [place] WITH TEMP. ILEOSTOMY History of tooth extraction History of wisdom tooth extraction History of tonsillectomy History of strabismus surgery left Family History Other No family history of adverse response to anesthesia Social History Smoking Status: Never smoker Second Hand Exposure: No; Do You Dip or Chew Tobacco: No; Hx Alcohol Use: Yes Alcohol type: beer Hx Substance Use: No Preferred Language: Hungarian Communication Ability: Effective Steward/Stewardess Second Required: No Beliefs That Will Affect Care: None Current Living Situation: Spouse Feels Safe at Home: Yes Assistive Devices: Cane, CPAP and Walker Allergies Allergies Allergy/AdvReac Type Severity Reaction Status Date / Time codeine AdvReac Intermediate headache Verified 07/12/21 10:49 Home Meds Home Medications Medication Instructions Recorded Confirmed sertraline 100 mg tablet (Zoloft) 100 mg PO QAM 08/21/18 07/12/21 Nervive 1 tab PO QAM 06/02/21 07/12/21 Previous Rx's Medication Instructions Recorded albuterol sulfate 90 mcg/actuation 2 puffs inhalation 6XD PRN 04/14/21 aerosol inhaler shortness of breath or wheezing #6.7 grams benzonatate 100 mg capsule 100 mg PO TID PRN cough #15 caps 04/14/21 acetaminophen 500 mg capsule 1,000 mg (2 x 500 mg) PO TID Pain 07/10/21 30 days #180 caps aspirin 81 mg tablet,delayed 81 mg PO BID 45 days #90 tabs 07/10/21 release (Adult Low Dose Aspirin) hydromorphone 2 mg tablet 2 - 4 mg (1 - 2 x 2 mg) PO Q6 PRN 07/10/21 pain #40 tabs ketorolac 10 mg tablet 10 mg PO Q6 Pain 5 days #20 tabs 07/10/21 ondansetron HCl 4 mg tablet 4 mg PO Q6 PRN nausea #30 tabs 07/10/21 sennosides 8.6 mg-docusate sodium 1 tab-cap PO DAILY #14 tabs 07/10/21 50 mg tablet (Senokot-S) tamsulosin 0.4 mg capsule (Flomax) 0.4 mg PO DAILY #7 caps 07/10/21 Results & Data (ED) Vital Signs Vital Signs - 24 hr 08/15/23 10:11 08/15/23 11:49 08/15/23 12:00 Temperature 36.5 C Temperature Source Temporal Artery Scan Pulse Rate 94 H 86 89 Pulse Rate from SpO2 Sensor 89 Respiratory Rate 19 18 Respiratory Effort / Characteristics Respiratory Depth Respiratory Pattern Blood Pressure 136/85 148/109 H Blood Pressure Mean 102 122 Pulse Oximetry 96 96 Oxygen Delivery Method Room Air Sepsis Recent Fever Within 48 Hours No Sepsis New/Unexplained Change in Mental Status N/A Sepsis Action Taken by Nursing No Action Required 08/15/23 12:00 08/15/23 12:15 08/15/23 12:15 Temperature Temperature Source Pulse Rate 90 Pulse Rate from SpO2 Sensor 88 Respiratory Rate 18 24 Respiratory Effort / Characteristics Non-Labored Respiratory Depth Normal Respiratory Pattern Regular Blood Pressure 148/109 H 153/98 H Blood Pressure Mean 121 116 Pulse Oximetry 98 95 Oxygen Delivery Method Room Air Sepsis Recent Fever Within 48 Hours Sepsis New/Unexplained Change in Mental Status Sepsis Action Taken by Nursing 08/15/23 12:47 08/15/23 13:00 08/15/23 13:15 Temperature Temperature Source Pulse Rate 82 82 Pulse Rate from SpO2 Sensor 83 82 83 Respiratory Rate 19 18 Respiratory Effort / Characteristics Respiratory Depth Respiratory Pattern Blood Pressure 119/85 126/92 131/86 Blood Pressure Mean 96 103 101 Pulse Oximetry 95 95 95 Oxygen Delivery Method Sepsis Recent Fever Within 48 Hours Sepsis New/Unexplained Change in Mental Status Sepsis Action Taken by Nursing 08/15/23 13:30 08/15/23 13:40 08/15/23 13:45 Temperature Temperature Source Pulse Rate 82 87 86 Pulse Rate from SpO2 Sensor 82 86 85 Respiratory Rate 18 22 15 Respiratory Effort / Characteristics Respiratory Depth Respiratory Pattern Blood Pressure 123/89 123/89 143/102 H Blood Pressure Mean 100 100 115 Pulse Oximetry 96 98 95 Oxygen Delivery Method Sepsis Recent Fever Within 48 Hours Sepsis New/Unexplained Change in Mental Status Sepsis Action Taken by Nursing 08/15/23 14:01 08/15/23 14:15 08/15/23 14:31 Temperature Temperature Source Pulse Rate 80 88 90 Pulse Rate from SpO2 Sensor 80 88 90 Respiratory Rate 15 21 21 Respiratory Effort / Characteristics Respiratory Depth Respiratory Pattern Blood Pressure 136/93 123/88 134/77 Blood Pressure Mean 107 99 96 Pulse Oximetry 96 97 98 Oxygen Delivery Method Sepsis Recent Fever Within 48 Hours Sepsis New/Unexplained Change in Mental Status Sepsis Action Taken by Nursing 08/15/23 14:45 08/15/23 15:00 08/15/23 15:15 Temperature Temperature Source Pulse Rate 88 87 88 Pulse Rate from SpO2 Sensor 88 87 88 Respiratory Rate 17 22 20 Respiratory Effort / Characteristics Respiratory Depth Respiratory Pattern Blood Pressure 117/83 120/89 125/89 Blood Pressure Mean 94 99 101 Pulse Oximetry 97 96 97 Oxygen Delivery Method Room Air Room Air Room Air Sepsis Recent Fever Within 48 Hours Sepsis New/Unexplained Change in Mental Status Sepsis Action Taken by Nursing 08/15/23 15:30 Temperature Temperature Source Pulse Rate 94 H Pulse Rate from SpO2 Sensor 93 H Respiratory Rate 14 Respiratory Effort / Characteristics Respiratory Depth Respiratory Pattern Blood Pressure 128/68 Blood Pressure Mean 88 Pulse Oximetry 96 Oxygen Delivery Method Room Air Sepsis Recent Fever Within 48 Hours Sepsis New/Unexplained Change in Mental Status Sepsis Action Taken by [facility] Medications Current Medication List: was personally reviewed by me Laboratory Data Attestation: I reviewed the patient's lab results. 08/15/23 11:15 08/15/23 11:15 Lab Results 08/15/23 08/15/23 Range/Units 11:15 Unknown WBC 8.73 (4.8-10.8) K/ul RBC 5.25 (4.70-6.10) M/uL Hgb 17.6 (14.0-18.0) g/dl Hct 48.5 (42.0-52.0) % MCV 92.4 (80.0-100.0) fL MCH 33.5 (25.0-34.0) pg MCHC 36.3 H (32.0-36.0) g/dL RDW Std Deviation 42.6 (36.4-46.3) fL RDW Coeff of Jenifer 12.7 (11.5-14.5) % Plt Count 299 (130-400) K/uL MPV 8.9 L (9.4-12.4) fL Immature Gran % (Auto) 0.5 % Neut % (Auto) 69.4 % Lymph % (Auto) 16.3 % Hitchcock % (Auto) 12.8 % Eos % (Auto) 0.7 % Baso % (Auto) 0.3 % Neut # (Auto) 6.06 (1.40-6.50) K/uL Lymph # (Auto) 1.42 (1.20-3.40) K/uL Hitchcock # (Auto) 1.12 H (0.11-0.59) K/uL Eos # (Auto) 0.06 (0.00-0.50) K/uL Baso # (Auto) 0.03 (0.00-0.20) K/uL Immature Gran # (Auto) 0.04 (0.01-0.20) K/uL Sodium 125 L (136-145) mmol/L Potassium 5.4 H (3.5-5.1) mmol/L Chloride 100 (98-107) mmol/L Carbon Dioxide 15 L (21-32) mmol/L Anion Gap 10 (3-11) BUN 40 H (6-23) mg/dl Creatinine 1.05 (0.6-1.4) mg/dl Est Cr Clr Drug Dosing 70.9 ml/min Est GFR ( Amer) 91.5 ml/min Est GFR (Non-Af Amer) 79.0 ml/min BUN/Creatinine Ratio 38.1 H (10-20) Glucose 148 H (70-99(Fasting)) mg/dl Osmolality 284 (280-300) mOsm/kg Calcium 11.3 H (8.6-10.3) mg/dl Magnesium 2.3 (1.7-2.4) mg/dl Total Bilirubin 1.2 H (0.2-1.0) mg/dl AST 29 (13-39) U/L ALT 34 (7-52) U/L Alkaline Phosphatase 81 (34-104) U/L Total Creatine Kinase 358 H (30-223) U/L Total Protein 8.8 H (6.0-8.3) gm/dl Albumin 5.2 H (3.4-5.0) gm/dl Globulin 3.6 (2.5-4.0) gm/dl Albumin/Globulin Ratio 1.4 (0.9-2) Lipase 108 H (11-82) U/L Urine Color Dark Yellow Urine Appearance Clear (Clear) Urine pH 6.0 (4.5-7.5) Ur Specific [place] 1.024 (1.000-1.030) Urine Protein 1+ H (Negative) Urine Glucose (UA) Negative (Negative) Urine Ketones Negative (Negative) Urine Blood Negative (Negative) Urine Nitrite Negative (Negative) Urine Bilirubin Negative (Negative) Urine Urobilinogen Negative (Negative) Ur Leukocyte Esterase Negative (Negative) Urine WBC (Auto) 0-5 (0-5) /hpf Urine RBC (Auto) 0-2 (0-2) /hpf U Hyaline Cast (Auto) >20 H (0-2) /lpf U Epithel Cells (Auto) 0-2 (0-2) /hpf Urine Bacteria (Auto) None Seen (None Seen) Urine Osmolality 712 (500-800) mOsm/kg Ur Random Sodium < 10 mmol/L Stl C. cayetanensis PCR Not Detected (NotDetected) Stool Rotavirus A PCR Not Detected (NotDetected) Stl Adenov F 40/41 PCR Not Detected (NotDetected) Stool Astrovirus (PCR) Not Detected (NotDetected) Stool Campylobacter PCR Not Detected (NotDetected) Stool Cryptosporidium PCR Not Detected (NotDetected) Stl E.coli Shiga Tox PCR Not Detected (NotDetected) Stl Enterotoxigenic E PCR Not Detected (NotDetected) Stool EPEC (PCR) Not Detected (NotDetected) Stool EAEC (PCR) Not Detected (NotDetected) Stl E. histolytica PCR Not Detected (NotDetected) Stool Giardia Lamblia PCR Not Detected (NotDetected) Stool Salmonella PCR Not Detected (NotDetected) Stool Sapovirus (PCR) Not Detected (NotDetected) Stl P. shigelloides PCR Not Detected (NotDetected) Stl Shigella/EIEC PCR Not Detected (NotDetected) St Y.enterocolitica PCR Not Detected (NotDetected) Stool Vibrio (PCR) Not Detected (NotDetected) Stl Vibrio cholerae PCR Not Detected (NotDetected) Stl Norovirus GI/GII PCR Not Detected (NotDetected) Adenovirus (PCR) Not Detected (NotDetected) B. pertussis DNA (PCR) Not Detected (NotDetected) B.parapertussis DNA PCR Not Detected (NotDetected) C. pneumoniae DNA (PCR) Not Detected (NotDetected) Coronavirus OC43 (PCR) Not Detected (NotDetected) Coronavirus HKU1 (PCR) Not Detected (NotDetected) Coronavirus 229E (PCR) Not Detected (NotDetected) SARS-CoV-2 (PCR) Not Detected (NotDetected) Coronavirus NL63 (PCR) Not Detected (NotDetected) Human Metapneumovir PCR Not Detected (NotDetected) Influenza Type A (PCR) Not Detected (NotDetected) Influenza Type B (PCR) Not Detected (NotDetected) M. pneumoniae (PCR) Not Detected (NotDetected) Parainfluenza 1 (PCR) Not Detected (NotDetected) Parainfluenza 2 (PCR) Not Detected (NotDetected) Parainfluenza 3 (PCR) Not Detected (NotDetected) Parainfluenza 4 (PCR) Not Detected (NotDetected) RSV (PCR) Not Detected (NotDetected) Entero/Rhino (PCR) Not Detected (NotDetected) Administered Medications Discontinued Medications Sodium Chloride (Nss) 1,000 mls @ 999 mls/hr IV .Q1H1M ONE Stop: 08/15/23 12:54 Last Infusion: 08/15/23 14:36 Dose: Infused Documented By: Admin: 08/15/23 12:05 Dose: 999 mls/hr Documented By: BARBIE Sodium Chloride (Nss) 1,000 mls @ 999 mls/hr IV .Q1H1M ONE Stop: 08/15/23 13:44 Last Admin: 08/15/23 14:35 Dose: 999 mls/hr Documented By: BARBIE Ioversol (Optiray 320 100ml) 91 ml IV ONCE ONE Stop: 08/15/23 12:42 Last Admin: 08/15/23 12:41 Dose: 91 ml Documented By: MADISON Morphine Sulfate (Morphine Sulfate 4 Mg/Ml 1 Ml Carp\Vial) 4 mg IV NOW STA Stop: 08/15/23 11:55 Last Admin: 08/15/23 12:06 Dose: 4 mg Documented By: BARBIE Ondansetron HCl (Ondansetron Inj 2 Mg/Ml 2 Ml Vial) 4 mg IV NOW STA Stop: 08/15/23 11:55 Last Admin: 08/15/23 12:06 Dose: 4 mg Documented By: BARBIE Imaging Data Attestation: I personally reviewed and interpreted this imaging study as follows: My Impression: CT of the abdomen and pelvis was obtained in the emergency department. My interpretation is no free air or signs of bowel obstruction, final report blood Radiologist's Impression: Abdomen/Pelvis CT 08/15/23 11:[address] WITH IV CONTRAST CT DOSE: 1405.66 mGy.cm HISTORY: Acute upper abdominal pain uppe abd pain TECHNIQUE: Multiaxial CT images of the abdomen and pelvis were performed following the IV administration of 91 cc of Optiray, A dose lowering technique was utilized adhering to the principles of ALARA. COMPARISON STUDY: 06/09/2015 FINDINGS: No acute process of the imaged lower chest. Mild bibasilar atelectasis. No free air. Unremarkable spleen, pancreas and adrenal glands. Hepatic steatosis. Patency of the hepatic and portal veins. Mildly distended gallbladder with borderline wall thickening No hydronephrosis. 2.0 cm cyst of the interpolar left kidney, previously 1.1 cm. Urinary bladder wall thickening with partial distention. Prostatomegaly. No abdominal aortic aneurysm or lymphadenopathy. No bowel obstruction or bowel wall thickening. Prior partial large and small bowel resections. No ascites or mesenteric inflammation. Unremarkable soft tissues. Degenerative changes of the spine, pelvis and hips. IMPRESSION: 1. Mild nonspecific gallbladder wall thickening could be correlated with ultrasound if of further clinical concern. 2. Prior large and small bowel resections. No bowel obstruction or bowel wall thickening. 3. Hepatic steatosis. ACT 112: Negative or not required by law. The above report was generated using voice recognition software. It may contain grammatical, syntax or spelling errors. Electronically signed by: Dontae Lofton M.D. 08/15/2023 12:57 PM Discharge Plan Visit Data Chief Complaint: Illness ED Provider: Edgar Puga Discharge Problem: Acute hyponatremia, Diarrhea, Generalized weakness, Acute hyperkalemia Patient Disposition: Being Evaluated by Hospitalist Forms Stand Alone Forms: My [facility] Mad Mimi Prescriptions Prescriptions: No Action hydromorphone 2 mg tablet 2 - 4 mg PO Q6 PRN (Reason: pain) Qty: 40 0RF Rx Instructions: Take as needed for Pain. ondansetron HCl 4 mg tablet 4 mg PO Q6 PRN (Reason: nausea) Qty: 30 0RF ketorolac 10 mg tablet 10 mg PO Q6 5 Days Qty: 20 0RF Rx Instructions: Take 4 times per day with food for 5 days to lessen pain and swelling. aspirin [Adult Low Dose Aspirin] 81 mg tablet,delayed release (DR/EC) 81 mg PO BID 45 Days Qty: 90 3RF Rx Instructions: Take to prevent blood clots. acetaminophen 500 mg capsule 1,000 mg PO TID 30 Days Qty: 180 0RF Rx Instructions: Take 3 times per day to lessen pain. tamsulosin [Flomax] 0.4 mg capsule 0.4 mg PO DAILY Qty: 7 2RF Rx Instructions: Begin night BEFORE surgery to prevent urinary retention sennosides-docusate sodium [Senokot-S] 8.6-50 mg tablet 1 tab-cap PO DAILY Qty: 14 0RF Rx Instructions: Take daily to prevent constipation sertraline [Zoloft] 100 mg Tablet 100 mg PO QAM Nervive 1 tab PO QAM albuterol sulfate 90 mcg/actuation HFA aerosol inhaler 2 puffs INH 6XD PRN (Reason: shortness of breath or wheezing) Qty: 6.7 0RF benzonatate 100 mg capsule 100 mg PO TID PRN (Reason: cough) Qty: 15 0RF Referrals Referrals: Celso Oneal MD [Primary Care Provider] - Discharge Problem: Diarrhea Qualifiers: Diarrhea type: unspecified type Qualified Code(s): R19.7 - Diarrhea, unspecified
[2023-08-15 12:17] LABS: Appearance Urine Clear (Clear); Bacteria Urine Automated None Seen (None Seen); Bilirubin Urine Negative (Negative); Blood Urine Negative (Negative); Cast Urine Automated >20 /lpf (0-2); Color Urine Dark Yellow; Epithelial Cell Urine Auto 0-2 /hpf (0-2); Glucose Urine UA Negative (Negative); Ketones Urine Negative (Negative); Leukocyte Esterase Urine Negative (Negative); Nitrite Urine Negative (Negative); Protein Urine 1+ (Negative); RBC Urine Automated 0-2 /hpf (0-2); Specific Gravity Urine 1.024 (1.000-1.030); Urobilinogen Urine Negative (Negative); WBC Urine Automated 0-5 /hpf (0-5)
[2023-08-15] MEDS: OPTIRAY 320 100ml IV ONE (12:41)
--- NOTE | 2023-08-15 12:59 | CT Scan Report ---
ABDOMEN AND PELVIS CT WITH IV CONTRAST CT DOSE: 1405.66 mGy.cm HISTORY: Acute upper abdominal pain uppe abd pain TECHNIQUE: Multiaxial CT images of the abdomen and pelvis were performed following the IV administrat ion of 91 cc of Optiray, A dose lowering technique was utilized adhering to the principles of ALARA. COMPARISON STUDY: 06/09/2015 FINDINGS: No acute process of the imaged lower chest. Mild bibasilar atelectasis. No free air. Unrema rkable spleen, pancreas and adrenal glands. Hepatic steatosis. Patency of the hepatic and portal vein s. Mildly distended gallbladder with borderline wall thickening No hydronephrosis. 2.0 cm cyst of the interpolar left kidney, previously 1.1 cm. Urinary bladder wall thickening with partial distention. Prostatomegaly. No abdominal aortic aneurysm or lymphadenopathy. No bowel obstruction or bowel wall thickening. Prior partial large and small bowel resections. No as cites or mesenteric inflammation. Unremarkable soft tissues. Degenerative changes of the spine, pelvi s and hips. IMPRESSION: 1. Mild nonspecific gallbladder wall thickening could be correlated with ultrasound if of further cli nical concern. 2. Prior large and small bowel resections. No bowel obstruction or bowel wall thickening. 3. Hepatic steatosis. ACT 112: Negative or not required by law. The above report was generated using voice recognition software. It may contain grammatical, syntax o r spelling errors. Electronically signed by: Dontae Lofton M.D. 08/15/2023 12:57 PM
[2023-08-15 13:17] LABS: Adenovirus PCR Not Detected (NotDetected); Bordetella parapertussis PCR Not Detected (NotDetected); Bordetella pertussis PCR Not Detected (NotDetected); Chlamydia pneumoniae PCR Not Detected (NotDetected); Coronavirus 229E PCR Not Detected (NotDetected); Coronavirus CoV-2 (COVID19)PCR Not Detected (NotDetected); Coronavirus HKU1 PCR Not Detected (NotDetected); Coronavirus NL63 PCR Not Detected (NotDetected); Coronavirus OC43PCR Not Detected (NotDetected); Human Metapneumovirus PCR Not Detected (NotDetected); Influenza A PCR Not Detected (NotDetected); Influenza B PCR Not Detected (NotDetected); Mycoplasma pneumoniae PCR Not Detected (NotDetected); Parainfluenza Virus 1 PCR Not Detected (NotDetected); Parainfluenza Virus 2 PCR Not Detected (NotDetected); Parainfluenza Virus 3 PCR Not Detected (NotDetected); Parainfluenza Virus 4 PCR Not Detected (NotDetected); Respiratory Syncytial VirusPCR Not Detected (NotDetected); Rhinovirus/Enterovirus PCR Not Detected (NotDetected)
[2023-08-15 13:26] LABS: Adenovirus F 40/41 PCR Not Detected (NotDetected); Astrovirus PCR Not Detected (NotDetected); Campylobacter PCR Not Detected (NotDetected); Cryptosporidium PCR Not Detected (NotDetected); Cyclospora cayetanensis PCR Not Detected (NotDetected); Entamoeba histolytica PCR Not Detected (NotDetected); Enteroaggregative E.coli(EAEC) Not Detected (NotDetected); Enteropathogenic E.coli (EPEC) Not Detected (NotDetected); Enterotoxigenic E.coli (ETEC) Not Detected (NotDetected); Giardia lamblia PCR Not Detected (NotDetected); Norovirus GI/GII PCR Not Detected (NotDetected); Plesiomonas shigelloides PCR Not Detected (NotDetected); Rotavirus A PCR Not Detected (NotDetected); Salmonella PCR Not Detected (NotDetected); Sapovirus PCR Not Detected (NotDetected); Shiga-like Toxin E.coli (STEC) Not Detected (NotDetected); Shigella/Enteroinvasive E.coli Not Detected (NotDetected); Vibrio cholerae PCR Not Detected (NotDetected); Vibrio species PCR Not Detected (NotDetected); Yersinia enterocolitica PCR Not Detected (NotDetected)
--- NOTE | 2023-08-15 14:19 | History & Physical Report ---
Date of Service August 15, 2023 Assessment & Plan (1) Acute hyponatremia: (2) Acute hyperkalemia: (3) Diarrhea: (4) Generalized weakness: (5) Carcinoid tumor of colon: (6) REN on CPAP: (7) Ulcerative colitis: (8) H/O colectomy: Plan Pt is a 57yoM with PMhx significant for UC s/p total colectomy, malignant carcinoid tumor of the colon, Hx of testicular cancer, Hx of pancreatitis, RA, asthma, prediabetes, REN on CPAP, depression presenting with acute N/V/D/abdominal pain symptoms and admitted with significant electrolyte abnormalities. Abdominal Pain N/V/Diarrhea Pt notes Hx of UC diagnosed in the 6th grade with bowel resections Also diagnosed with colon cancer at age 28, carcinoid tumor Notes entire large intestine was removed Last 6 days watery diarrhea now yellow green, anorexia(states 14 pound weight loss), warm sweats, N/V CT abd/pelvis unremarkable, does note gallbladder thickening Stool Cx negative Biofire negative US liver pending Trend liver enzymes, t bili elevated GI consulted, appreciate recs. Possible dumping syndrome?, recurrence of carcinoid tumor? pt follows with Dr Patiño locally, notes last colonoscopy about 2 years ago Elevated lipase Pt with abdominal pain and elevated lipase of [address] Continue to monitor in setting of significant hyponatremia will defer to nephrology re:fluids (see below) Hyponatremia Sodium level of 125 noted Urine osm 712, urine <10 Received 2L of NSS in the ED Possibly decreased in setting of pain and increased ADH secretion, possible dumping syndrome? Nephrology consulted, appreciate recs q4h BMP Avoid overcorrection Hyperkalemia Potassium elevated at 5.4 q4h BMP Continue to monitor Nephrology consulted as above Rhabdo Elevated CK Pt notes muscle cramping CK elevated at 358 Received 2L of fluids in the ED Will defer to Nephrology for fluids in setting of hyponatremia as above AM CK Hyperglycemia AM [id number] Mood Continue home meds Diet: NPO DVT prophylaxis: heparin q12 Dispo: PCU/tele with hyponatremia and hypokalemia History of Present Illness Chief Complaint: Abdominal pain Primary Care Provider: Celso Oneal MD Pt is a 57yoM with PMhx significant for UC s/p total colectomy, malignant carcinoid tumor of the colon, Hx of testicular cancer, Hx of pancreatitis, RA, asthma, prediabetes, REN on CPAP, depression presenting with acute N/V/D/abdominal pain symptoms and admitted with significant electrolyte abnormalities. Pt was seen by his pcp today who advised further evaluation in the ED. He states that 6 days ago he started with nausea and vomiting while in [place]. Has a Hx of UC diagnosed in the 6th grade, notes he had surgeries related to this in both 6th and 10th grade. Also was diagnosed with colon cancer (carcinoid per [facility] chart review) and had a total colectomy as a result. States he follows with Dr Patiño for his local GI care, last colonoscopy per chart review was in May 2022, noted hemorrhoids and healthy mucosa around the J pouch ileo-anal anastamosis. States he has chronic liquid stools but these have been different in terms of color-yeallow green. States he has not been able to eat anything, states he lost 14 pounds in the last 6 days. Chronically nauseated, the pain is now controlled with morphine but was 5/10 before. Mostly LLQ pain. Also notes that he has been getting bad cramps and feels warm and sweaty at times. Also dizzy. Allergies Allergy/AdvReac Type Severity Reaction Status Date / Time codeine AdvReac Intermediate headache Verified 07/12/21 10:49 Home Medications Medication Instructions Recorded Confirmed Type sertraline 100 mg tablet (Zoloft) 200 mg PO QAM 08/21/18 08/15/23 History ondansetron HCl 4 mg tablet 4 mg PO Q6 PRN nausea #30 tabs 07/10/21 08/15/23 Rx acetaminophen 500 mg capsule 1,000 mg PO BID Pain 08/15/23 08/15/23 History bupropion HCl 150 mg 24 hr tablet, 150 mg PO QAM 08/15/23 08/15/23 History extended release Past Med/Surg History Medical History Morbid obesity with BMI of 40.0-44.9, adult Left knee DJD Encounter for pre-operative examination Osteoarthritis Lumbar herniated disc Ulcerative colitis History of colon cancer diagnosed at age of 28--sx Depression Sleep apnea cpap-compliant Surgical History Status post right knee replacement History of orchiectomy, unilateral left. 03/12/2019: Grade 2 view, MAC#3, ETT#7.5 atraumatic x 1. No postop issues per anesthesia progress note. Status post right knee replacement 05/15/2017: Grade 1 view, glidescope #4, ETT#8.0 (elective glidescope int ubation) x 1 atraumatic + PNB. No postop issues per anesthesia progress note. History of reversal of ileostomy History of hernia repair History of anesthesia reaction slow waking up History of surgery salivary gland removed History of repair of left rotator cuff Hx of vasectomy History of colonoscopy History of esophagogastroduodenoscopy (EGD) History of colectomy @ [facility] [place] WITH TEMP. ILEOSTOMY History of tooth extraction History of wisdom tooth extraction History of tonsillectomy History of strabismus surgery left Family History Other No family history of adverse response to anesthesia Social History Smoking Status: Never smoker Second Hand Exposure: No; Do You Dip or Chew Tobacco: No; Hx Alcohol Use: Yes Alcohol type: beer Hx Substance Use: No Preferred Language: Cameroonian Communication Ability: Effective E [employer] Project Manager Required: No Beliefs That Will Affect Care: None Current Living Situation: Spouse Feels Safe at Home: Yes Assistive Devices: Cane, CPAP and Walker Review of Systems Review of Systems: All systems reviewed & are unremarkable except as noted in Subjective Physical Exam Physical Exam: General: Alert, oriented. No acute distress Skin: No noted rashes or bruises Psych: Appropriate mood and affect Neuro: No gross deficits HEENT: NC/AT Chest: Nontender to palpation. CV: RRR Resp: Breath sounds clear bilaterally, no increased effort of breathing. Abdomen:Soft, tender in RUQ on my exam, No guarding Extremities: No edema in lower extremities bilaterally. Results & Data Results & Data Vital Signs (Past 12 Hours) Vital Signs Temp Pulse Resp BP Pulse Ox O2 Del Method 08/15/23 12:15 18 98 Room Air 08/15/23 11:49 86 08/15/23 10:11 36.5 C 94 H 19 136/85 96 Room Air (3) Diarrhea Diarrhea type: unspecified type Qualified Code(s): R19.7 - Diarrhea, unspecified
[2023-08-15] MEDS ORDERED: ONDANSETRON INJ 2 MG/ML 2 ML VIAL IV PRN (15:14)
[2023-08-15] MEDS ORDERED: ONDANSETRON 4 MG OD TAB PO PRN (16:31)
[2023-08-15 17:37] LABS: Calcium 9.9 mg/dl (8.6-10.3); Creatinine Clr Calc Pharmacy 120.9 ml/min; Est GFR (African American) 112.9 ml/min; Est GFR (Non-African American) 97.4 ml/min; Phosphorus 3.8 mg/dl (2.5-4.9); Potassium 4.4 mmol/L (3.5-5.1)
[2023-08-15] MEDS ORDERED: HYDROmorphone INJ 0.5 MG/0.5 ML SYR IV PRN (18:05)
[2023-08-15 20:40] LABS: BUN Creatinine Ratio 38.7 (10-20); Calcium 9.4 mg/dl (8.6-10.3); Creatinine Clr Calc Pharmacy 137.3 ml/min; Est GFR (African American) 118.9 ml/min; Est GFR (Non-African American) 102.5 ml/min; Potassium 4.3 mmol/L (3.5-5.1)
[2023-08-15] MEDS: HEPARIN SOD 5,000 UNIT/0.5 ML VIAL SQ SCH (21:46)
[2023-08-15] MEDS: ACETAMINOPHEN 1,000 MG/100 ML VIAL IV PRN (21:47)
[2023-08-15] MEDS ORDERED: SODIUM CHLORIDE 0.9% 1,000 ML IV SCH (22:30)
--- OUTSIDE RECORDS SUMMARY | 2023-08-15 23:20 | External Medical Summary ---
Author Name Unknown Address Unknown Organization [id number]:[facility]ATORY [facility] [place] - [address] [place] [address] Laboratory Report Ordering Provider Test Date Status BOGDAN PRETTYANTONIETA 07/18/2023 07:27:51 Final Observation Date Value Abnormality Reference (Units ) Status HbA1C 07/18/2023 07:27:51 5.9 Above high normal 4. 0-5.6 (%) Final The use of HbA1c to monitor glycemic status is based on normal hemoglobin and HbA composition. This test should not be used in patients with abnormal hemoglobin that affects the half life of the red blood cell or the in vivo glycation rates. Glucose, estimated average 07/18/2023 07:27:51 123 <126 (mg/dL) Final Performing Location [facility] [place] [facility] [address] [facility] [facility] [address]
--- OUTSIDE RECORDS SUMMARY | 2023-08-15 23:20 | External Medical Summary ---
Author Name Unknown Address Unknown Organization [id number]:LABORATORY [facility] [place] - [address] [facility] [address] Laboratory Report Ordering Provider Test Date Status JENNIE PRETTY 07/18/2023 07:27:51 Final Observation Date Value Abnormality Reference (Units ) Status Triglyceride 07/18/2023 07:27:51 95 <=174 ( mg/dL) Final Triglyceride Reference Range s (mg/dL):
<150 Acceptable
150-174 Borderline high
175-499 High
>=500 Very high Cholesterol 07/18/2023 07:27:51 189 <200 (mg /dL) Final Total Cholesterol Reference Ranges (mg/dL):
<200 Desirable
200-239 Borderline high
>=240 High HDL 07/18/2023 07:27:51 47 >39 (mg/dL ) Final HDL Cholesterol Reference Ra nges (mg/dL):
>=60 High (Desirable)
<50 Low (Undesirable) For Females
<40 Low (Undesirable) For Males NON-HDL CHOLESTEROL 07/18/2023 07:27:51 142 <=159 (mg/dL) Final Non-HDL Cholesterol Referenc e Range (mg/dL):
<100 Target level for high risk ASCVD patient
<130 Optimal for general population
130-159 Near optimal for general population
160-189 Borderline High
190-219 High
>=220 Very High LDL, (calculated) 07/18/2023 07:27:51 123 <= 129 (mg/dL) Final LDL Cholesterol Reference Ra nges (mg/dL):
<70 Target level for high risk ASCVD patient
<100 Optimal for general population
100-129 Near optimal for general population
130-159 Borderline high
160-189 High
>=190 Very high Performing Location LABORATORY [facility] [place] - [address] [place] [id number]
--- OUTSIDE RECORDS SUMMARY | 2023-08-15 23:20 | External Medical Summary ---
Author Name Unknown Address Unknown Organization [id number]:[facility] [place] [address] [facility] [address] Laboratory Report Ordering Provider Test Date Status JENNIE PRETTY 07/18/2023 07:27:51 Final Observation Date Value Abnormality Reference (Units ) Status BUN 07/18/2023 07:27:51 10 6-20 (mg/dL) Final Creatinine 07/18/2023 07:27:51 0.7 0.6-1.2 (mg/dL) Final Glomerular filtration rate/1.73 sq M.predicted [Volume Rate/Area] in Serum, Plasma or Blood by Creatinine-based formula (CKD-EPI) 07/18/2023 07:27:51 >90 >=60 (mL/min) Final eGFR is calculated based on the CKD-EPI 2020 equation Sodium 07/18/2023 07:27:51 139 135-146 (m mol/L) Final Potassium 07/18/2023 07:27:51 5.0 3.5-5.1 (m mol/L) Final Cl 07/18/2023 07:27:51 102 98-107 (mm ol/L) Final CO2 07/18/2023 07:27:51 25 22-32 (mmo l/L) Final Anion gap 07/18/2023 07:27:51 12 7-15 (mmol /L) Final Glucose 07/18/2023 07:27:51 127 Above high normal 70 -120 (mg/dL) Final Albumin 07/18/2023 07:27:51 4.6 3.8-5.0 (g /dL) Final AST (Aspartate aminotransferase) 07/18/2023 07:27:51 30 10-50 (U/L) Fin al Alk Phos 07/18/2023 07:27:51 76 35-130 (U/ L) Final Bilirubin, Total 07/18/2023 07:27:51 0.4 <=1 .2 (mg/dL) Final Calcium 07/18/2023 07:27:51 9.5 8.4-10.2 ( mg/dL) Final Protein 07/18/2023 07:27:51 7.1 6.0-8.3 (g /dL) Final ALT (Alanine aminotransferase) 07/18/2023 07:27:51 39 10-50 (U/L) Chuy coats Performing Location [facility] [place] [facility] [place] [facility] [address] [facility] [address]
--- OUTSIDE RECORDS SUMMARY | 2023-08-15 23:20 | External Medical Summary | Summary of Care ---
Author Name Unknown Organization [facility] Address [address] [place] [address] Phone [phone] Care Team Providers Care Director Corporate Sales Name Role Phone Celso Oneal MD Primary Care Provider [phone] Reason for Visit * Reason Comments Outpatient Testing Encounter Details Date Type Department Care Team (Late st Contact Info) Description 07/18/2023 7:40 AM EDT Laboratory Laboratory, [place] [address] [place] [address] [facility] [address], [place] [id number] Screening for condition; Prediabetes Allergies Active Allergy Reactions Criticality Noted Date Comments Codeine Medium 10/20/2011 headache Other reaction(s): headache documented as of this encounter (statuses as of 07/18/2023) Medications Medication Sig Dispensed Refills Start Date End Date Status Acetaminophen 500 MG Oral Tablet (Tylenol) Take by mouth 1,000 mg in the morning AND 1,000 mg before bedtime. 0 04/14/2021 Active Ibuprofen 200 MG Oral Capsule Take 2 Capsules by mouth every 4 hours as needed. 0 Active CPAP every night at bedtime. 0 Active buPROPion HCl ER (XL) 150 MG Oral Tablet Extended Release 24 Hour (Wellbutrin XL)Indications:Chron ic depression Take 1 Tablet by mouth in the morning. 90 Tablet 3 08/16/2022 Active Sertraline HCl 100 MG Oral Tablet (Zoloft)Indications: Chronic depression Take 2 Tablets by mouth daily. 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 History of colon cancer 07/10/2018 Chronic depression 01/01/2018 Prediabetes 06/05/2017 Overview: Per Prediabetes protocol #1 REN on CPAP 05/12/2013 Overview: INSTITUTION LIBRARIAN 05/12/13 auto CPAP set pressure of 11 cm of water pressure C-flex 2 Ulcerative colitis 09/07/2009 Obesity, morbid (more than 1 00 lbs over ideal weight or BMI > 40) 07/20/2009 Overview: Per Obesity Taxonomy ICD-10 update of inactive term Asymptomatic left ventricular dysfunction 2009 Vitamin D deficiency 07/02/2009 documented as of this encounter (statuses as of 07/18/2023) Resolved Problems Problem Noted Date Diagnosed Date Resolved Date Dysthymia 03/04/2021 03/04/2021 Mild obstructive sleep apnea 10/16/2014 01/01/2018 Spastic bladder 05/03/2014 01/31/2018 Chronic sinusitis 03/12/2014 01/31/2018 Viral URI with cough 03/12/2014 018 Hesitancy 03/12/2014 01/31/2018 Colon cancer 01/06/2013 07/10/2018 Enteropathic arthropathy 11/21/201202/2018 Endoarteritis 09/27/2012 10/10/2012 Diarrhea 09/09/2009 01/31/2018 HYPERNATREMIA 09/09/2009 01/31/2018 Chronic rhinitis 09/09/2009 01/01/2018 Organic sleep disorder 09/09/200901/01 Acute pancreatitis 09/07/2009 8 Pouchitis 09/07/2009 01/01/2018 Overview: Hx of UC, colon resection with J Pouch. Asthma exacerbation 08/28/2007 06/30/19 10 Acute URI 08/28/2007 06/11/2008 Overview: Resolved per Benign Acute Dxs Protocol #3 ADVANCE DIRECTIVE INFORMATION 11/18/2004 06/29/2009 Overview: No, Advance Directive brochure given to patient. ACUTE PHARYNGITIS 08/02/2004 06/11/2008 Overview: Resolved per Benign Acute Dxs Protocol #3 Chronic rhinitis 08/02/2004 08/28/2007 Acute bronchitis, antibiotics not indicated 07/11/2004 06/18/2008 Overview: Resolved per Benign Acute Dxs Protocol #3 EXT ASTHMA W STATUS ASTH 07/11/2004 Allergic rhinitis 07/11/2004 06/29/2009 Cough 07/11/2004 01/01/2018 OBESITY, UNSPECIFIED 07/11/2004 010 Overview: Per Obesity Taxonomy IMPOTENCE, ORGANIC ORIGN 07/11/200404/2011 Precordial pain 09/30/2002 07/11/2004 Malaise and fatigue 09/30/2002 07/12/19 05 Chronic sinusitis 04/10/2001 07/11/2004 Unspecified viral infection, in conditions classified elsewhere and of unspecified site 04/10/2001 07/11/2004 Cough 04/10/2001 07/11/2004 DYSFUNCT EUSTACHIAN TUBE 04/10/2001 documented as of this encounter (statuses as of 07/18/2023) Immunizations Name Administration Dates Next Due Pneumococcal Polysaccharide PPV23 (Pneumovax) 03/11/2008 Seasonal Influenza, Split, I IV3, With Preserve, Inj 05/09/2012(Deferred: Patient Refused - does not wnat to have it),03/09/2008,05/06/2007,04/06/2006 TDAP (age 10 and older)(Boostrix) 01/01/2018 TDAP (age 11 and older)(Adacel) 04/06/2006 documented as of this encounter Social History Tobacco Use Types Packs/Day Years Used Date Smoking Tobacco: Never Smokeless Tobacco: Never Alcohol Use Standard Drinks/Week Comments Yes 0 (1 standard drink = 0.6 oz pur e alcohol) 6-7 on weekends PHQ-2 Answer Date Recorded PHQ-2 Score -1 01/11/2020 Sex and Gender Information Value Date Recorded Sex Assigned at Male 08/02/2018 8:09 AM EDT Gender Identity Male 08/02/2018 8:09 AM EDT Sexual Orientation Straight 08/02/2018 8: 09 AM EDT Job Start Date Occupation Industry Not on file Not on file Not on file documented as of this encounter Plan of Treatment Upcoming Encounters Date Type Department Care Team (Late st Contact Info) Description 08/20/2023 10:20 AM EDT Office Visit [facility] [address] [place] [phone] Celso Oneal MD [address] [place] [address] 09/25/2023 3:40 PM EDT Office Visit [facility] [address] [place] [phone] Jamee Montoya DO [address] [place] [phone] Pending Results Name Type Priority Associated Diagnoses Date /Time LIPID PANEL WITH DIRECT LDL IF TG IS HIGH Lab Routine Screening for condition 07/18/2023 7:27 AM EDT COMPREHENSIVE METABOLIC PANEL Lab Routine Screening for condition 07/18/2023 7:27 AM EDT HEMOGLOBIN A1C Lab Routine Prediabetes 07/18/2023 7:27 AM EDT Scheduled Procedures Name Priority Associated Diagnoses Date/Ti me COLONOSCOPY FLEXIBLE PROXIMA L DIAGNOSTIC Recall Chronic ulcerative pancolitis (HCC) Health Maintenance Due Date Last Done Comments HIV Screening 1981 Hepatitis C Screening 1984 Hepatitis B (1 of 3 - 19+ 3-dose series) 1985 Zoster Vaccines (1 of 2) 2016 Depression Screening 10/26/2020 10/27/2019 HbA1c 08/15/2022 08/15/2021, 04/0 08/2018, 04/20/2017 COVID-19 Vaccine (3 - 2023-24 season) 2022 01/21/2021, 08/21/2020 Influenza Vaccine (FLU shot) (#1) 2022 03/09/2008, 03/09/2008, 05/06/2007, Additional history exists COLONOSCOPY-EVERY 2 YRS AGES 18-100 06/12/2024 06/12/2022, 06/12/2022, 08/28/2018, Additional history exists Lipid Panel 08/15/2026 08/15/2021, 12/22, 04/04/2014, Additional history exists DTaP,Tdap,and Td Vaccines (3 - Td or Tdap) 01/02/2028 01/01/2018, 04/06/2006 Pneumococcal Vaccine: Pediatrics (0 to 5 Years) and At-Risk Patients (6 to 64 Years) Aged Out 03/11/2008 No longer eligible based on patient's age to complete this topic GARDASIL-HPV IMMUNIZATION SERIES Aged Out No longer eligible based on patient's age to complete this topic MENINGOCOCCAL (MENACTRA/MENVEO) Aged Out No longer eligible based on patient's age to complete this topic documented as of this encounter Medical Devices Not on filedocumented as of this encounter Visit Diagnoses Diagnosis Screening for condition Screening for unspecified condition Prediabetes Other abnormal glucose documented in this encounter Care Teams Director Corporate Sales Relationship Specialty Start Date End Date Celso Oneal MD [address] [place] [address] PCP - General Family Medicine 06/02/10 documented as of this encounter
[2023-08-16 01:07] LABS: BUN Creatinine Ratio 32.2 (10-20); Calcium 9.8 mg/dl (8.6-10.3); Creatinine Clr Calc Pharmacy 114.4 ml/min; Est GFR (African American) 110.3 ml/min; Est GFR (Non-African American) 95.1 ml/min; Potassium 4.6 mmol/L (3.5-5.1)
--- NOTE | 2023-08-16 01:18 | Ultrasound Report ---
Exam(s): US LIVER EXAM: US Abdomen Limited CLINICAL HISTORY: Reason for exam: RUQ pain, gallbladder thickening. TECHNIQUE: Real-time ultrasound of the abdomen with image documentation. COMPARISON: None. FINDINGS: Liver: Diffuse fatty liver. The liver measures 20.9 cm. Gallbladder: The gallbladder wall measures 1.5 mm. There is sludge within the gallbladder. There are 2 small areas within the gallbladder wall with, tail artifact which may indicate adenomyomatosis. No distinct stones visualized. Common bile duct: The common bile duct measures 4.8 mm. Pancreas: The pancreas is obscured. Kidneys: The visualized right kidney is unremarkable with no hydronephrosis. Bowel: Exam is limited due to gas artifact in the bowel and body habitus . Free fluid: The heart for ascites and assessable due to prior pain medication. IMPRESSION: 1. Diffuse fatty liver with possible hepatomegaly. 2. Possible adenomyomatosis with no distinct stones or signs of acute cholecystitis. 3. Remainder of the right upper quadrant ultrasound unremarkable. Electronically signed by: Carmen See MD 08/16/23 01:17 AM
[2023-08-16 07:20] LABS: Estimated Average Glucose 114 mg/dl; Hemoglobin A1C 5.6 % (4.5-5.6)
[2023-08-16 07:27] LABS: Basophils # (auto) 0.03 K/uL (0.00-0.20); Basophils % (auto) 0.4 %; Eosinophils # (auto) 0.08 K/uL (0.00-0.50); Eosinophils % (auto) 1.2 %; Hematocrit (blood only) 43.7 % (42.0-52.0); Hemoglobin 15.6 g/dl (14.0-18.0); Immature Granulocytes # (auto) 0.04 K/uL (0.01-0.20); Immature Granulocytes % (auto) 0.6 %; Lymphocytes # (auto) 1.29 K/uL (1.20-3.40); Lymphocytes % (auto) 19.3 %; Mean Corpuscular Hemoglobin 33.2 pg (25.0-34.0); Mean Corpuscular Hgb Conc 35.7 g/dL (32.0-36.0); Mean Platelet Volume 8.9 fL (9.4-12.4); Monocytes # (auto) 0.83 K/uL (0.11-0.59); Monocytes % (auto) 12.4 %; Neutrophils # (auto) 4.43 K/uL (1.40-6.50); Neutrophils % (auto) 66.1 %; Platelet Count 215 K/uL (130-400); RDW Coefficient of Variation 12.9 % (11.5-14.5); RDW Standard Deviation 43.9 fL (36.4-46.3)
[2023-08-16 07:45] LABS: Albumin Globulin Ratio 1.4 (0.9-2); Albumin Level 4.3 gm/dl (3.4-5.0); BUN Creatinine Ratio 35.7 (10-20); Bilirubin,Total 0.9 mg/dl (0.2-1.0); Calcium 9.8 mg/dl (8.6-10.3); Creatinine Clr Calc Pharmacy 144.8 ml/min; Est GFR (African American) 122.3 ml/min; Est GFR (Non-African American) 105.5 ml/min; Globulin 3.1 gm/dl (2.5-4.0); Phosphorus 3.4 mg/dl (2.5-4.9); Potassium 4.5 mmol/L (3.5-5.1); Total Protein 7.4 gm/dl (6.0-8.3)
--- NOTE | 2023-08-16 09:24 | Hospitalist Progress Note ---
Date of Service August 16, 2023 Assessment & Plan (1) Acute hyponatremia: (2) Acute hyperkalemia: (3) Diarrhea: (4) Generalized weakness: (5) Carcinoid tumor of colon: (6) REN on CPAP: (7) Ulcerative colitis: (8) H/O colectomy: Plan Pt is a 57yoM with PMhx significant for UC s/p total colectomy, malignant carcinoid tumor of the colon, Hx of testicular cancer, Hx of pancreatitis, RA, asthma, prediabetes, REN on CPAP, depression presenting with acute N/V/D/abdominal pain symptoms and admitted with significant electrolyte abnormalities. Abdominal Pain N/V/Diarrhea Pt notes Hx of UC diagnosed in the 6th grade with bowel resections Also diagnosed with colon cancer at age 28, carcinoid tumor Notes entire large intestine was removed Last 6 days watery diarrhea now yellow green, anorexia(states 14 pound weight loss), warm sweats, N/V CT abd/pelvis unremarkable, does note gallbladder thickening Stool Cx negative Biofire negative US liver - fatty liver, sludge within gallbladder, Possible adenomyomatosis with no distinct stones or signs of acute cholecystitis. Trend liver enzymes, t bili elevated GI consulted, appreciate recs. Possible dumping syndrome?, recurrence of carcinoid tumor? pt follows with Dr Patiño locally, notes last colonoscopy about 2 years ago Elevated lipase Pt with abdominal pain and elevated lipase of [address] Continue to monitor in setting of significant hyponatremia will defer to nephrology re:fluids (see below) restarted gentle IV NS - will further discuss w/ nephro Hyponatremia Sodium level of 125 noted Urine osm 712, urine <10 Received 2L of NSS in the ED Possibly decreased in setting of pain and increased ADH secretion, possible dumping syndrome? Nephrology consulted, appreciate recs q4h BMP Avoid overcorrection 130 last evening, and IVF was stopped by admitting provider. 132 this AM - restart gentle IVF NS - will further discuss w/ nephro Hyperkalemia Potassium elevated at 5.4 q4h BMP Continue to monitor K improved now Nephrology consulted as above Elevated CK (not high enough for rhabdo) Pt notes muscle cramping CK elevated at 358 --> 170 Received 2L of fluids in the ED Will defer to Nephrology for fluids in setting of hyponatremia as above Hyperglycemia Current hgba1c 5.6% Mood Continue home meds Diet: NPO DVT prophylaxis: heparin q12 Dispo: PCU/tele Admission and Anticipated Discharge Date Admission Date: August 15, 2023 Subjective Pt seen in follow up of diarrhea, abd. pain LLQ - which started in [place], then seen by PCP and sent to ED. Found hyponatremic in ED. Hx of UC, carcinoid tumor Gi and Nephrology consulted Pt received NS on admission -> sodium level improved Currently pt is laying in bed in NAD Says he was in [place] to see his grandchildren, ate pineapple and became sick -. went to ER there and was released - believed to be d/t food poisoning, however not getting better in days so went to see his PCP who sent him to ED Pt says diarrhea is improving stool pcr in ED negative Had muscle cramps - severe in [place], less severe last night LLQ abd. pain seems also improved Will restart gentle NS IV and will follow up w/ nephro and repeat labs Pt says he was seen by GI PA earlier this AM Review of Systems Review of Systems: All systems reviewed & are unremarkable except as noted in Subjective Physical Exam Physical Exam: General: Alert, oriented. No acute distress HEENT: NC/AT CV: RRR Resp: Breath sounds clear bilaterally, no increased effort of breathing. Abdomen:Soft, mildly tender in LLQ, No guarding Neuro: awake, alert, answers appropriately, no facial asymmetry, moves extremities Extremities: No edema in lower extremities bilaterally. Skin: warm, dry Results & Data Results & Data Vital Signs (Past 12 Hours) Vital Signs Temp Pulse Pulse Resp BP BP Pulse Ox 08/16/23 07:30 36.7 C 78 18 103/59 L 98 08/16/23 05:00 71 15 08/16/23 04:00 74 16 124/84 96 08/15/23 23:30 73 15 132/88 94 08/15/23 23:02 80 08/15/23 21:50 80 18 112/80 96 O2 Del Method 08/16/23 07:30 Room Air 08/16/23 05:00 08/16/23 04:00 Room Air 08/15/23 23:30 Room Air 08/15/23 23:02 08/15/23 21:50 Room Air Laboratory Results 08/16/23 08/16/23 08/15/23 Range/Units 06:34 00:38 Unknown WBC 6.70 (4.8-10.8) K/ul RBC 4.70 (4.70-6.10) M/uL Hgb 15.6 (14.0-18.0) g/dl Hct 43.7 (42.0-52.0) % MCV 93.0 (80.0-100.0) fL MCH 33.2 (25.0-34.0) pg MCHC 35.7 (32.0-36.0) g/dL RDW Std Deviation 43.9 (36.4-46.3) fL RDW Coeff of Jenifer 12.9 (11.5-14.5) % Plt Count 215 (130-400) K/uL MPV 8.9 L (9.4-12.4) fL Immature Gran % (Auto) 0.6 % Neut % (Auto) 66.1 % Lymph % (Auto) 19.3 % Hood % (Auto) 12.4 % Eos % (Auto) 1.2 % Baso % (Auto) 0.4 % Neut # (Auto) 4.43 (1.40-6.50) K/uL Lymph # (Auto) 1.29 (1.20-3.40) K/uL Hood # (Auto) 0.83 H (0.11-0.59) K/uL Eos # (Auto) 0.08 (0.00-0.50) K/uL Baso # (Auto) 0.03 (0.00-0.20) K/uL Immature Gran # (Auto) 0.04 (0.01-0.20) K/uL Sodium 132 L 130 L (136-145) mmol/L Potassium 4.5 4.6 (3.5-5.1) mmol/L Chloride 107 105 (98-107) mmol/L Carbon Dioxide 17 L 18 L (21-32) mmol/L Anion Gap 8 7 (3-11) BUN 25 H 29 H (6-23) mg/dl Creatinine 0.70 0.90 (0.6-1.4) mg/dl Est Cr Clr Drug Dosing 144.8 114.4 ml/min Est GFR ( Amer) 122.3 110.3 ml/min Est GFR (Non-Af Amer) 105.5 95.1 ml/min BUN/Creatinine Ratio 35.7 H 32.2 H (10-20) Glucose 115 H 117 H (70-99(Fasting)) mg/dl Estimat Average Glucose 114 mg/dl Hemoglobin A1c 5.6 (4.5-5.6) % Osmolality (280-300) mOsm/kg Calcium 9.8 9.8 (8.6-10.3) mg/dl Phosphorus 3.4 (2.5-4.9) mg/dl Magnesium 2.0 (1.7-2.4) mg/dl Total Bilirubin 0.9 (0.2-1.0) mg/dl AST 26 (13-39) U/L ALT 29 (7-52) U/L Alkaline Phosphatase 70 (34-104) U/L Total Creatine Kinase 170 (30-223) U/L Total Protein 7.4 (6.0-8.3) gm/dl Albumin 4.3 (3.4-5.0) gm/dl Globulin 3.1 (2.5-4.0) gm/dl Albumin/Globulin Ratio 1.4 (0.9-2) Lipase (11-82) U/L Urine Color Dark Yellow Urine Appearance Clear (Clear) Urine pH 6.0 (4.5-7.5) Ur Specific [place] 1.024 (1.000-1.030) Urine Protein 1+ H (Negative) Urine Glucose (UA) Negative (Negative) Urine Ketones Negative (Negative) Urine Blood Negative (Negative) Urine Nitrite Negative (Negative) Urine Bilirubin Negative (Negative) Urine Urobilinogen Negative (Negative) Ur Leukocyte Esterase Negative (Negative) Urine WBC (Auto) 0-5 (0-5) /hpf Urine RBC (Auto) 0-2 (0-2) /hpf U Hyaline Cast (Auto) >20 H (0-2) /lpf U Epithel Cells (Auto) 0-2 (0-2) /hpf Urine Bacteria (Auto) None Seen (None Seen) Urine Osmolality 712 (500-800) mOsm/kg Ur Random Sodium < 10 mmol/L Stl C. cayetanensis PCR Not Detected (NotDetected) Stool Rotavirus A PCR Not Detected (NotDetected) Stl Adenov F 40/41 PCR Not Detected (NotDetected) Stool Astrovirus (PCR) Not Detected (NotDetected) Stool Campylobacter PCR Not Detected (NotDetected) Stool Cryptosporidium PCR Not Detected (NotDetected) Stl E.coli Shiga Tox PCR Not Detected (NotDetected) Stl Enterotoxigenic E PCR Not Detected (NotDetected) Stool EPEC (PCR) Not Detected (NotDetected) Stool EAEC (PCR) Not Detected (NotDetected) Stl E. histolytica PCR Not Detected (NotDetected) Stool Giardia Lamblia PCR Not Detected (NotDetected) Stool Salmonella PCR Not Detected (NotDetected) Stool Sapovirus (PCR) Not Detected (NotDetected) Stl P. shigelloides PCR Not Detected (NotDetected) Stl Shigella/EIEC PCR Not Detected (NotDetected) St Y.enterocolitica PCR Not Detected (NotDetected) Stool Vibrio (PCR) Not Detected (NotDetected) Stl Vibrio cholerae PCR Not Detected (NotDetected) Stl Norovirus GI/GII PCR Not Detected (NotDetected) Adenovirus (PCR) Not Detected (NotDetected) B. pertussis DNA (PCR) Not Detected (NotDetected) B.parapertussis DNA PCR Not Detected (NotDetected) C. pneumoniae DNA (PCR) Not Detected (NotDetected) Coronavirus OC43 (PCR) Not Detected (NotDetected) Coronavirus HKU1 (PCR) Not Detected (NotDetected) Coronavirus 229E (PCR) Not Detected (NotDetected) SARS-CoV-2 (PCR) Not Detected (NotDetected) Coronavirus NL63 (PCR) Not Detected (NotDetected) Human Metapneumovir PCR Not Detected (NotDetected) Influenza Type A (PCR) Not Detected (NotDetected) Influenza Type B (PCR) Not Detected (NotDetected) M. pneumoniae (PCR) Not Detected (NotDetected) Parainfluenza 1 (PCR) Not Detected (NotDetected) Parainfluenza 2 (PCR) Not Detected (NotDetected) Parainfluenza 3 (PCR) Not Detected (NotDetected) Parainfluenza 4 (PCR) Not Detected (NotDetected) RSV (PCR) Not Detected (NotDetected) Entero/Rhino (PCR) Not Detected (NotDetected) 08/15/23 08/15/23 08/15/23 Range/Units 20:04 16:34 11:15 WBC 8.73 (4.8-10.8) K/ul RBC 5.25 (4.70-6.10) M/uL Hgb 17.6 (14.0-18.0) g/dl Hct 48.5 (42.0-52.0) % MCV 92.4 (80.0-100.0) fL MCH 33.5 (25.0-34.0) pg MCHC 36.3 H (32.0-36.0) g/dL RDW Std Deviation 42.6 (36.4-46.3) fL RDW Coeff of Jenifer 12.7 (11.5-14.5) % Plt Count 299 (130-400) K/uL MPV 8.9 L (9.4-12.4) fL Immature Gran % (Auto) 0.5 % Neut % (Auto) 69.4 % Lymph % (Auto) 16.3 % Hood % (Auto) 12.8 % Eos % (Auto) 0.7 % Baso % (Auto) 0.3 % Neut # (Auto) 6.06 (1.40-6.50) K/uL Lymph # (Auto) 1.42 (1.20-3.40) K/uL Hood # (Auto) 1.12 H (0.11-0.59) K/uL Eos # (Auto) 0.06 (0.00-0.50) K/uL Baso # (Auto) 0.03 (0.00-0.20) K/uL Immature Gran # (Auto) 0.04 (0.01-0.20) K/uL Sodium 130 L 129 L 125 L (136-145) mmol/L Potassium 4.3 4.4 5.4 H (3.5-5.1) mmol/L Chloride 106 106 100 (98-107) mmol/L Carbon Dioxide 15 L 14 L 15 L (21-32) mmol/L Anion Gap 9 9 10 (3-11) BUN 29 H 34 H 40 H (6-23) mg/dl Creatinine 0.75 0.85 1.05 (0.6-1.4) mg/dl Est Cr Clr Drug Dosing 137.3 120.9 70.9 ml/min Est GFR ( Amer) 118.9 112.9 91.5 ml/min Est GFR (Non-Af Amer) 102.5 97.4 79.0 ml/min BUN/Creatinine Ratio 38.7 H 40.0 H 38.1 H (10-20) Glucose 125 H 152 H 148 H (70-99(Fasting)) mg/dl Estimat Average Glucose mg/dl Hemoglobin A1c (4.5-5.6) % Osmolality 284 (280-300) mOsm/kg Calcium 9.4 9.9 11.3 H (8.6-10.3) mg/dl Phosphorus 3.8 (2.5-4.9) mg/dl Magnesium 2.0 2.3 (1.7-2.4) mg/dl Total Bilirubin 1.2 H (0.2-1.0) mg/dl AST 29 (13-39) U/L ALT 34 (7-52) U/L Alkaline Phosphatase 81 (34-104) U/L Total Creatine Kinase 285 H 358 H (30-223) U/L Total Protein 8.8 H (6.0-8.3) gm/dl Albumin 5.2 H (3.4-5.0) gm/dl Globulin 3.6 (2.5-4.0) gm/dl Albumin/Globulin Ratio 1.4 (0.9-2) Lipase 108 H (11-82) U/L Urine Color Urine Appearance (Clear) Urine pH (4.5-7.5) Ur Specific [place] (1.000-1.030) Urine Protein (Negative) Urine Glucose (UA) (Negative) Urine Ketones (Negative) Urine Blood (Negative) Urine Nitrite (Negative) Urine Bilirubin (Negative) Urine Urobilinogen (Negative) Ur Leukocyte Esterase (Negative) Urine WBC (Auto) (0-5) /hpf Urine RBC (Auto) (0-2) /hpf U Hyaline Cast (Auto) (0-2) /lpf U Epithel Cells (Auto) (0-2) /hpf Urine Bacteria (Auto) (None Seen) Urine Osmolality (500-800) mOsm/kg Ur Random Sodium mmol/L Stl C. cayetanensis PCR (NotDetected) Stool Rotavirus A PCR (NotDetected) Stl Adenov F 40/41 PCR (NotDetected) Stool Astrovirus (PCR) (NotDetected) Stool Campylobacter PCR (NotDetected) Stool Cryptosporidium PCR (NotDetected) Stl E.coli Shiga Tox PCR (NotDetected) Stl Enterotoxigenic E PCR (NotDetected) Stool EPEC (PCR) (NotDetected) Stool EAEC (PCR) (NotDetected) Stl E. histolytica PCR (NotDetected) Stool Giardia Lamblia PCR (NotDetected) Stool Salmonella PCR (NotDetected) Stool Sapovirus (PCR) (NotDetected) Stl P. shigelloides PCR (NotDetected) Stl Shigella/EIEC PCR (NotDetected) St Y.enterocolitica PCR (NotDetected) Stool Vibrio (PCR) (NotDetected) Stl Vibrio cholerae PCR (NotDetected) Stl Norovirus GI/GII PCR (NotDetected) Adenovirus (PCR) (NotDetected) B. pertussis DNA (PCR) (NotDetected) B.parapertussis DNA PCR (NotDetected) C. pneumoniae DNA (PCR) (NotDetected) Coronavirus OC43 (PCR) (NotDetected) Coronavirus HKU1 (PCR) (NotDetected) Coronavirus 229E (PCR) (NotDetected) SARS-CoV-2 (PCR) (NotDetected) Coronavirus NL63 (PCR) (NotDetected) Human Metapneumovir PCR (NotDetected) Influenza Type A (PCR) (NotDetected) Influenza Type B (PCR) (NotDetected) M. pneumoniae (PCR) (NotDetected) Parainfluenza 1 (PCR) (NotDetected) Parainfluenza 2 (PCR) (NotDetected) Parainfluenza 3 (PCR) (NotDetected) Parainfluenza 4 (PCR) (NotDetected) RSV (PCR) (NotDetected) Entero/Rhino (PCR) (NotDetected) Medications Administered Current Inpatient Medications Bupropion HCl (Bupropion Xl 150 Mg Tabcr) 150 mg PO QAM JOY Stop: 09/15/23 08:59 Heparin Sodium (Porcine) (Heparin Sod 5,000 Unit/0.5 Ml Vial) 5,000 units SQ Q8 JOY Stop: 09/14/23 21:59 Last Admin: 08/15/23 21:46 Dose: 5,000 units Hydromorphone HCl (Hydromorphone Inj 0.5 Mg/0.5 Ml Syr) 0.5 mg IV Q6H PRN PRN Reason: Mod-Sev Pain (Scale 4-10) Stop: 08/29/23 18:04 Acetaminophen (Ofirmev) 1,000 mg in 100 mls @ 400 mls/hr IV Q8H PRN PRN Reason: Mild Pain (Scale 1, 2, 3) Stop: 08/18/23 18:04 Last Infusion: 08/15/23 22:05 Dose: Infused Ondansetron HCl (Ondansetron Inj 2 Mg/Ml 2 Ml Vial) 4 mg IV Q6H PRN PRN Reason: Nausea And Vomiting Stop: 09/14/23 15:13 Sertraline HCl (Sertraline Hcl 100 Mg Tablet) 200 mg PO QAM [facility] Stop: 09/15/23 08:59 (3) Diarrhea Diarrhea type: unspecified type Qualified Code(s): R19.7 - Diarrhea, unspecified
[2023-08-16] MEDS: SODIUM CHLORIDE 0.9% 500 ML IV SCH (09:59)
[2023-08-16] MEDS: SERTRALINE HCL 100 MG TABLET PO SCH (11:03)
[2023-08-16] MEDS: buPROPion XL 150 MG TABCR PO SCH (11:03)
--- NOTE | 2023-08-16 12:32 | Nephrology Consultation ---
Date of Consultation August 16, 2023 Assessment & Plan (1) Disorder of fluid or electrolyte: hypovolemic hyponatremia in the setting of acute dehydration w/ worsened diarrhea and emesis. responding well if a bit fast to IVF >f/u pending study > target is no more than 133-134 this evening and no more than 138 on AM labs tomorrow >maintain eukalemia >>if overcorrecting, it may be difficult to rein in the correction as ADH diminishes w/ volume repletion but will try History of Present Illness Reason for Consultation: hyponatremia Requesting Physician: Dr Barrett Attending Physician: Sriram Henley MD History of Present Illness 57 y/o M whom I'm asked to see for hyponatremia was admitted yesterday 1430 for hyperkalemia, hyponatremia in the setting of exacerbation of his chronic diarrhea. PMH includes UC, colon CA/carcinoid tumor dx'd age 28 s/p resection, mood disorder, class 3 obesity. Also w/ hx of BL knee replacements, including L one a few months back. he has diarrhea chronically but starting 5 days ago began having increasing urgency and frequency to BM. at his worst there were q1 hour green/yellow bm (no blood) and 8-10 times daily emesis similar colors as well. minimal po intake in this period b/c nothing would stay in his GI tract. These sx started during a trip to [facility] no other sick contacts. he had brought a cane w/ him b/c of plans to do a lot of walking on family trip but ended up needing cane d/t severe weakness, inability to ambulate w/o it. His presenting sodium was 125; increased to 130 12 hours later and 132 by this AM. Presenting K 5.4 > improved rapidly to mid 4s. BUN 40 > 25. he had urine osms 712, Rolando under 10; serum osms 284. He had 2L NS in ER and was then started on NS at 40 mL/hr. today he feels vastly improved. still w/ diarrhea but slowing in frequency/urgency. no f/c, no n/v > to start bland/slow diet this PM; no sob, no edema; no further n/v. no new/worrisome voiding sx including no gross hematuria or rash. no current lightheadedness or dizziness. Allergies Allergy/AdvReac Type Severity Reaction Status Date / Time codeine AdvReac Intermediate headache Verified 07/12/21 10:49 Home Medications Medication Instructions Recorded Confirmed Type sertraline 100 mg tablet (Zoloft) 200 mg PO QAM 08/21/18 08/15/23 History ondansetron HCl 4 mg tablet 4 mg PO Q6 PRN nausea #30 tabs 07/10/21 08/15/23 Rx acetaminophen 500 mg capsule 1,000 mg PO BID Pain 08/15/23 08/15/23 History bupropion HCl 150 mg 24 hr tablet, 150 mg PO QAM 08/15/23 08/15/23 History extended release Patient History Medical History Morbid obesity with BMI of 40.0-44.9, adult Left knee DJD Encounter for pre-operative examination Osteoarthritis Lumbar herniated disc Ulcerative colitis History of colon cancer diagnosed at age of 28--sx Depression Sleep apnea cpap-compliant Surgical History Status post right knee replacement History of orchiectomy, unilateral left. 03/12/2019: Grade 2 view, MAC#3, ETT#7.5 atraumatic x 1. No postop issues per anesthesia progress note. Status post right knee replacement 05/15/2017: Grade 1 view, glidescope #4, ETT#8.0 (elective glidescope intubation) x 1 atraumatic + PNB. No postop issues per anesthesia progress note. History of reversal of ileostomy History of hernia repair History of anesthesia reaction slow waking up History of surgery salivary gland removed History of repair of left rotator cuff Hx of vasectomy History of colonoscopy History of esophagogastroduodenoscopy (EGD) History of colectomy @ [facility] [place] 1993 WITH TEMP. ILEOSTOMY History of tooth extraction History of wisdom tooth extraction History of tonsillectomy History of strabismus surgery left Family History Other No family history of adverse response to anesthesia Social History Smoking Status: Never smoker Second Hand Exposure: No; Do You Dip or Chew Tobacco: No; Hx Alcohol Use: Yes Alcohol type: beer Hx Substance Use: No Preferred Language: Hungarian Communication Ability: Effective Protection Officer Required: No Beliefs That Will Affect Care: None Current Living Situation: Spouse Feels Safe at Home: Yes Assistive Devices: Cane Review of Systems 2 Review of Systems: All systems reviewed & are unremarkable except as noted in HPI & below Physical Exam 2 Constitutional: well developed, well nourished, + morbidly obese and cooperative; no acute distress Eyes: EOM intact bilaterally ENMT: Ears: no external ear abnormality Nose: no external nose abnormality Mouth: + dry oral mucous membranes Neck: no nuchal rigidity Respiratory: normal respiratory effort Auscultation: lungs clear to auscultation bilaterally and + diminished lung sounds Cardiovascular: RRR, no murmur, no edema Gastrointestinal (Abdomen): Inspection/Auscultation: normal bowel sounds P ercussion/Palpation: abdomen soft; abdomen nontender Musculoskeletal: Extremities: strength 5/5 throughout Skin: no rashes, warm and dry Neurologic: moss, fluent speech, no tremor Psychiatric: Orientation: alert and oriented x 3 Results & Data Vital Signs (Past 12 Hours) Vital Signs Temp Pulse Pulse Resp BP BP Pulse Ox 08/16/23 11:39 36.3 C L 76 18 122/80 97 08/16/23 07:30 36.7 C 78 18 103/59 L 98 08/16/23 05:00 71 15 08/16/23 04:00 74 16 124/84 96 O2 Del Method 08/16/23 11:39 Room Air 08/16/23 07:30 Room Air 08/16/23 05:00 08/16/23 04:00 Room Air Laboratory Results 08/16/23 06:34 repeat bmp pending [address] a/p w/ iv con 1. Mild nonspecific gallbladder wall thickening could be correlated with ultrasound if of further clinical concern. 2. Prior large and small bowel resections. No bowel obstruction or bowel wall thickening. 3. Hepatic steatosis. > kidneys w/ cyst
--- NOTE | 2023-08-16 12:51 | Gastrointestinal Consultation ---
Date of Consultation August 16, 2023 Assessment & Plan (1) Diarrhea: CT unremarkable--no evidence of obstruction, mass, or pouch issues. Stool PCR negative. Unlikely to be C diff enteritis this far out from colectomy, but order is pending. US shows adenomyomatosis, but no acute gallbladder concerns to exp gilmar symptoms. Last scope in 2022 showed normal pouch tissue. -Supportive care per primary team. -Overall picture seems most suspicious for infectious etiology despite negative PCR. -O&P studies pending. -Continue to monitor clinical course. -If not improving, consider repeating scope inpatient vs outpatient with his typical GI provider. Supervising Physician Co-Signing Physician Notes Agree with FRIDA Biswas as above Interviewed and examined patient and agree with above Abd: Soft, NT, ND, +BS Significantly improved today. Diarrhea has improved. Will need close followup with Dr. Patiño as an outpatient. History of Present Illness Reason for Consultation: "? dumping synd, N/V/D/abdpain, Hx UC/cancer/colect" Attending Physician: Sriram Henley MD History of Present Illness Patient is a 57 yo male with PMH of UC s/p colectomy at age 28, malignant carcinoid tumor of the colon, testicular cancer, pancreatitis, RA, asthma, prediabetes, REN on CPAP who preswednted with nausea, vomiting and diarrhea. He notes that has symptoms have been ongoing x 1 week. He was in [place] and developed these symptoms. He notes he was seen at an urgent care and was diagnosed with a likely viral gastroenteritis. He notes several loose stools daily. Vomiting has stopped at this point. He notes he does have chronic loose stool given his history of a colectomy due to UC and carcinoid tumor. He follows with Dr. Patiño and believes his last colonoscopy was in 2022, though I do not have access to this personally. His hospitalist did document that he had normal healthy mucosa noted around the J pouch/ileo-anal anastomosis. The pain he experienced was LLQ, but this is improving as well. Since admission, a CT scan with IV contrast did not demonstrate any bowel abnormalities. He was noted to have hyponatremia which is being corrected by the primary service. A stool PCR was negative. Allergies Allergy/AdvReac Type Severity Reaction Status Date / Time codeine AdvReac Intermediate headache Verified 07/12/21 10:49 Home Medications Medication Instructions Recorded Confirmed Type sertraline 100 mg tablet (Zoloft) 200 mg PO QAM 08/21/18 08/15/23 History ondansetron HCl 4 mg tablet 4 mg PO Q6 PRN nausea #30 tabs 07/10/21 08/15/23 Rx acetaminophen 500 mg capsule 1,000 mg PO BID Pain 08/15/23 08/15/23 History bupropion HCl 150 mg 24 hr tablet, 150 mg PO QAM 08/15/23 08/15/23 History extended release Patient History Medical History Morbid obesity with BMI of 40.0-44.9, adult Left knee DJD Encounter for pre-operative examination Osteoarthritis Lumbar herniated disc Ulcerative colitis History of colon cancer diagnosed at age of 28--sx Depression Sleep apnea cpap-compliant Surgical History Status post right knee replacement History of orchiectomy, unilateral left. 03/12/2019: Grade 2 view, MAC#3, ETT#7.5 atraumatic x 1. No postop issues per anesthesia progress note. Status post right knee replacement 05/15/2017: Grade 1 view, glidescope #4, ETT#8.0 (elective glidescope intubation) x 1 atraumatic + PNB. No postop issues per anesthesia progress note. History of reversal of ileostomy History of hernia repair History of anesthesia reaction slow waking up History of surgery salivary gland removed History of repair of left rotator cuff Hx of vasectomy History of colonoscopy History of esophagogastroduodenoscopy (EGD) History of colectomy @ [facility] [place] 1993 WITH TEMP. ILEOSTOMY History of tooth extraction History of wisdom tooth extraction History of tonsillectomy History of strabismus surgery left Family History Other No family history of adverse response to anesthesia Social History Smoking Status: Never smoker Second Hand Exposure: No; Do You Dip or Chew Tobacco: No; Hx Alcohol Use: Yes Alcohol type: beer Hx Substance Use: No Preferred Language: Turkish Communication Ability: Effective Long Chain Beamer Required: No Beliefs That Will Affect Care: None Current Living Situation: Spouse Feels Safe at Home: Yes Assistive Devices: Cane Review of Systems Gastrointestinal: + abdominal pain, + nausea, + vomiting, + diarrhea/loose stools and + problem reported (all improving) Physical Exam Constitutional: well developed Respiratory: normal respiratory effort Gastrointestinal (Abdomen): normal bowel sounds, soft, nontender, no hepatosplenomegaly Psychiatric: Orientation: alert and oriented x 3 Results & Data Vital Signs (Past 12 Hours) Vital Signs Temp Pulse Pulse Resp BP BP Pulse Ox 08/16/23 11:39 36.3 C L 76 18 122/80 97 08/16/23 07:30 36.7 C 78 18 103/59 L 98 08/16/23 05:00 71 15 08/16/23 04:00 74 16 124/84 96 O2 Del Method 08/16/23 11:39 Room Air 08/16/23 07:30 Room Air 08/16/23 05:00 08/16/23 04:00 Room Air PG Care Time/CCT Total # of Minutes Spent Total Time Spent with Patient: Total time spent is greater than 50% in coordination of care (as documented) at patient's floor/unit and/or counseling patient: Coding Level of Care Code 62968 IN/OBS CONSULT LVL 4,60M Diagnoses Diarrhea R19.7 Diarrhea type: unspecified type (1) Diarrhea Diarrhea type: unspecified type Qualified Code(s): R19.7 - Diarrhea, unspecified
[2023-08-16 19:07] LABS: BUN Creatinine Ratio 32.9 (10-20); Calcium 9.3 mg/dl (8.6-10.3); Creatinine Clr Calc Pharmacy 144.8 ml/min; Est GFR (African American) 122.3 ml/min; Est GFR (Non-African American) 105.5 ml/min; Phosphorus 2.9 mg/dl (2.5-4.9)
[2023-08-17] MEDS: MELATONIN 3 MG TAB PO PRN (02:08)
[2023-08-17 06:56] LABS: Hematocrit (blood only) 38.9 % (42.0-52.0); Mean Corpuscular Volume 91.7 fL (80.0-100.0); Platelet Count 191 K/uL (130-400); RDW Coefficient of Variation 12.7 % (11.5-14.5); RDW Standard Deviation 42.2 fL (36.4-46.3); Red Blood Count 4.24 M/uL (4.70-6.10); White Blood Count 5.14 K/ul (4.8-10.8)
[2023-08-17 07:20] LABS: Albumin Globulin Ratio 1.5 (0.9-2); Albumin Level 4.1 gm/dl (3.4-5.0); BUN Creatinine Ratio 27.5 (10-20); Bilirubin,Total 0.8 mg/dl (0.2-1.0); Est GFR (Non-African American) 106.1 ml/min; Globulin 2.8 gm/dl (2.5-4.0); Magnesium 1.9 mg/dl (1.7-2.4); Phosphorus 3.7 mg/dl (2.5-4.9); Potassium 4.4 mmol/L (3.5-5.1); Total Protein 6.9 gm/dl (6.0-8.3)
[2023-08-17] MEDS: SODIUM CHLORIDE 0.9% 1,000 ML IV SCH (10:09)
--- NOTE | 2023-08-17 10:53 | Nephrology Progress Note ---
Date of Service August 17, 2023 Assessment & Plan Admission and Anticipated Discharge Date Admission Date: August 15, 2023 Subjective Assessment & Plan (1) Disorder of fluid or electrolyte: hypovolemic hyponatremia in the setting of acute dehydration w/ worsened diarrhea and emesis. na went from 125 to 132 but then went down after RL stopped. agree with restarting RL at 80/hr. BMP in AM Dangers of over correction are not relevant at this level of na 130+. FFR 1800 ml . high protein diet. S--Patient feels better today less nausea and vomiting . He is diarrhea is back to his baseline status. na did not go higher so restarted on RL. Physical Exam Constitutional: well developed, well nourished, + morbidly obese and cooperative; no acute distress Eyes: EOM intact bilaterally ENMT: Ears: no external ear abnormality Nose: no external nose abnormality Mouth: + dry oral mucous membranes Neck: no nuchal rigidity Respiratory: normal respiratory effort Auscultation: lungs clear to auscultation bilaterally and + diminished lung sounds Cardiovascular: RRR, no murmur, no edema Gastrointestinal (Abdomen): Inspection/Auscultation: normal bowel sounds Percussion/Palpation: abdomen soft; abdomen nontender Musculoskeletal: Extremities: strength 5/5 throughout Skin: no rashes, warm and dry Neurologic: moss, fluent speech, no tremor Psychiatric: Orientation: alert and oriented x 3 Results & Data Vital Signs (Past 12 Hours) Vital Signs Temp Pulse Resp BP Pulse Ox O2 Del Method 08/17/23 08:35 36.7 C 83 21 137/79 96 Room Air 08/17/23 03:45 36.7 C 69 18 114/78 95 Room Air
--- NOTE | 2023-08-17 11:55 | Hospitalist Progress Note ---
Date of Service August 17, 2023 Assessment & Plan (1) Acute hyponatremia: (2) Acute hyperkalemia: (3) Diarrhea: (4) Generalized weakness: (5) Carcinoid tumor of colon: (6) REN on CPAP: (7) Ulcerative colitis: (8) H/O colectomy: Plan Pt is a 57yoM with PMhx significant for UC s/p total colectomy, malignant carcinoid tumor of the colon, Hx of testicular cancer, Hx of pancreatitis, RA, asthma, prediabetes, REN on CPAP, depression presenting with acute N/V/D/abdominal pain symptoms and admitted with significant electrolyte abnormalities. Abdominal Pain N/V/Diarrhea Pt notes Hx of UC diagnosed in the 6th grade with bowel resections Also diagnosed with colon cancer at age 28, carcinoid tumor Notes entire large intestine was removed Last 6 days watery diarrhea now yellow green, anorexia(states 14 pound weight loss), warm sweats, N/V CT abd/pelvis unremarkable, does note gallbladder thickening Stool Cx negative Biofire negative US liver - fatty liver, sludge within gallbladder, Possible adenomyomatosis with no distinct stones or signs of acute cholecystitis. Trend liver enzymes, t bili elevated GI consulted, appreciate recs. Possible dumping syndrome?, recurrence of carcinoid tumor? pt follows with Dr Patiño locally, notes last colonoscopy about 2 years ago Per GI - -O&P studies pending. If not improving, consider repeating scope inpatient vs outpatient with his typical GI provider. Discussed abx - don't feel needed as pt's diarrhea is improving. Elevated lipase Pt with abdominal pain and elevated lipase of [address] Continue to monitor in setting of significant hyponatremia will defer to nephrology re:fluids (see below) restarted gentle IV NS - will further discuss w/ nephro Hyponatremia Sodium level of 125 noted Urine osm 712, urine <10 Received 2L of NSS in the ED Possibly decreased in setting of pain and increased ADH secretion, possible dumping syndrome? Nephrology consulted, appreciate recs q4h BMP Avoid overcorrection 130 evening of admission, and IVF was stopped by admitting provider. 132 next AM - restarted gentle IVF NS - will further discuss w/ nephro Hyperkalemia Potassium elevated at 5.4 q4h BMP Continue to monitor K improved now Nephrology consulted as above Elevated CK (not high enough for rhabdo) Pt notes muscle cramping CK elevated at 358 --> 170 Received 2L of fluids in the ED Will defer to Nephrology for fluids in setting of hyponatremia as above Hyperglycemia Current hgba1c 5.6% Mood Continue home meds Diet: advance diet DVT prophylaxis: heparin q12 Dispo: PCU/tele Admission and Anticipated Discharge Date Admission Date: August 15, 2023 Subjective Pt seen in follow up of diarrhea, abd. pain LLQ - which started in [place], then seen by PCP and sent to ED. Found hyponatremic in ED. Hx of UC, carcinoid tumor GI and Nephrology consulted Pt received NS on admission -> sodium level improved Currently pt is laying in bed in NAD Says he was in [place] to see his grandchildren, ate pineapple and became sick - went to ER there and was released - believed to be d/t food poisoning, however not getting better in days so went to see his PCP who sent him to ED Pt says diarrhea is improving stool pcr in ED negative LLQ abd. pain seems resolved today. Diet was also advanced and pt is tolerating. Will restart gentle NS IV and will follow up w/ nephro and repeat labs Pt was seen by GI - -O&P studies pending. -If not improving, consider repeating scope inpatient vs outpatient with his typical GI provider. Review of Systems Review of Systems: All systems reviewed & are unremarkable except as noted in Subjective Physical Exam Physical Exam: General: Alert, oriented. No acute distress HEENT: NC/AT CV: RRR Resp: Breath sounds clear bilaterally, no increased effort of breathing. Abdomen: Soft, nontender, No guarding Neuro: awake, alert, answers appropriately, no facial asymmetry, moves extremities Extremities: No edema in lower extremities bilaterally. Skin: warm, dry Results & Data Results & Data Vital Signs (Past 12 Hours) Vital Signs Temp Pulse Resp BP Pulse Ox O2 Del Method 08/17/23 10:48 36.7 C 79 19 130/82 94 Room Air 08/17/23 08:35 36.7 C 83 21 137/79 96 Room Air 08/17/23 03:45 36.7 C 69 18 114/78 95 Room Air Laboratory Results 08/17/23 08/17/23 08/16/23 Range/Units 06:19 01:33 18:03 WBC 5.14 (4.8-10.8) K/ul RBC 4.24 L (4.70-6.10) M/uL Hgb 14.0 (14.0-18.0) g/dl Hct 38.9 L (42.0-52.0) % MCV 91.7 (80.0-100.0) fL MCH 33.0 (25.0-34.0) pg MCHC 36.0 (32.0-36.0) g/dL RDW Std Deviation 42.2 (36.4-46.3) fL RDW Coeff of Jenifer 12.7 (11.5-14.5) % Plt Count 191 (130-400) K/uL MPV 9.0 L (9.4-12.4) fL Sodium 130 L 131 L (136-145) mmol/L Potassium 4.4 4.0 (3.5-5.1) mmol/L Chloride 103 105 (98-107) mmol/L Carbon Dioxide 18 L 17 L (21-32) mmol/L Anion Gap 9 9 (3-11) BUN 19 23 (6-23) mg/dl Creatinine 0.69 0.70 (0.6-1.4) mg/dl Est Cr Clr Drug Dosing 147.0 144.8 ml/min Est GFR ( Amer) 123.0 122.3 ml/min Est GFR (Non-Af Amer) 106.1 105.5 ml/min BUN/Creatinine Ratio 27.5 H 32.9 H (10-20) Glucose 125 H 185 H (70-99(Fasting)) mg/dl Calcium 9.0 9.3 (8.6-10.3) mg/dl Phosphorus 3.7 2.9 (2.5-4.9) mg/dl Magnesium 1.9 2.0 (1.7-2.4) mg/dl Total Bilirubin 0.8 (0.2-1.0) mg/dl AST 21 (13-39) U/L ALT 27 (7-52) U/L Alkaline Phosphatase 64 (34-104) U/L Total Protein 6.9 (6.0-8.3) gm/dl Albumin 4.1 (3.4-5.0) gm/dl Globulin 2.8 (2.5-4.0) gm/dl Albumin/Globulin Ratio 1.5 (0.9-2) Stl C. diff Tox B Gene Negative Cdiff Gene (Neg) Stl Isospora & Cyclospora Pending Stool Comments Pending Giardia Antigen Pending Medications Administered Current Inpatient Medications Bupropion HCl (Bupropion Xl 150 Mg Tabcr) 150 mg PO QAM [facility] Stop: 09/15/23 08:59 Last Admin: 08/17/23 07:56 Dose: 150 mg Heparin Sodium (Porcine) (Heparin Sod 5,000 Unit/0.5 Ml Vial) 5,000 units SQ Q8 [facility] Stop: 09/14/23 21:59 Last Admin: 08/17/23 05:08 Dose: 5,000 units Hydromorphone HCl (Hydromorphone Inj 0.5 Mg/0.5 Ml Syr) 0.5 mg IV Q6H PRN PRN Reason: Mod-Sev Pain (Scale 4-10) Stop: 08/29/23 18:04 Acetaminophen (Ofirmev) 1,000 mg in 100 mls @ 400 mls/hr IV Q8H PRN PRN Reason: Mild Pain (Scale 1, 2, 3) Stop: 08/18/23 18:04 Last Infusion: 08/15/23 22:05 Dose: Infused Sodium Chloride (Nss) 1,000 mls @ 80 mls/hr IV .[id number] [facility] Stop: 09/16/23 08:44 Last Admin: 08/17/23 10:09 Dose: 80 mls/hr Melatonin (Melatonin 3 Mg Tab) 3 mg PO HS PRN PRN Reason: Sleep Stop: 09/16/23 01:41 Last Admin: 08/17/23 02:08 Dose: 3 mg Ondansetron HCl (Ondansetron Inj 2 Mg/Ml 2 Ml Vial) 4 mg IV Q6H PRN PRN Reason: Nausea And Vomiting Stop: 09/14/23 15:13 Sertraline HCl (Sertraline Hcl 100 Mg Tablet) 200 mg PO [facility] Stop: 09/15/23 08:59 Last Admin: 08/17/23 07:56 Dose: 200 mg (3) Diarrhea Diarrhea type: unspecified type Qualified Code(s): R19.7 - Diarrhea, unspecified
[2023-08-18 06:19] LABS: Hematocrit (blood only) 35.8 % (42.0-52.0); Hemoglobin 12.8 g/dl (14.0-18.0); Mean Corpuscular Hgb Conc 35.8 g/dL (32.0-36.0); Mean Corpuscular Volume 92.3 fL (80.0-100.0); Platelet Count 164 K/uL (130-400); RDW Coefficient of Variation 12.5 % (11.5-14.5); RDW Standard Deviation 41.6 fL (36.4-46.3); Red Blood Count 3.88 M/uL (4.70-6.10); White Blood Count 4.82 K/ul (4.8-10.8)
[2023-08-18 06:45] LABS: BUN Creatinine Ratio 22.2 (10-20); Calcium 8.2 mg/dl (8.6-10.3); Creatinine Clr Calc Pharmacy 190.2 ml/min; Est GFR (Non-African American) 117.4 ml/min; Magnesium 1.8 mg/dl (1.7-2.4); Phosphorus 3.3 mg/dl (2.5-4.9); Potassium 3.8 mmol/L (3.5-5.1)
--- NOTE | 2023-08-18 09:18 | Discharge Summary ---
Date of Service August 18, 2023 Admission HPI Per Admitting Provider Pt is a 57yoM with PMhx significant for UC s/p total colectomy, malignant carcinoid tumor of the colon, Hx of testicular cancer, Hx of pancreatitis, RA, asthma, prediabetes, REN on CPAP, depression presenting with acute N/V/D/abdominal pain symptoms and admitted with significant electrolyte abnormalities. Pt was seen by his pcp today who advised further evaluation in the ED. He states that 6 days ago he started with nausea and vomiting while in [place]. Has a Hx of UC diagnosed in the 6th grade, notes he had surgeries related to this in both 6th and 10th grade. Also was diagnosed with colon cancer (carcinoid per [facility] chart review) and had a total colectomy as a result. States he follows with Dr Patiño for his local GI care, last colonoscopy per chart review was in May 2022, noted hemorrhoids and healthy mucosa around the J pouch ileo-anal anastamosis. States he has chronic liquid stools but these have been different in terms of color-yeallow green. States he has not been able to eat anything, states he lost 14 pounds in the last 6 days. Chronically nauseated, the pain is now controlled with morphine but was 5/10 before. Mostly LLQ pain. Also notes that he has been getting bad cramps and feels warm and sweaty at times. Also dizzy. Admission Exam Per Admitting Provider General: Alert, oriented. No acute distress Skin: No noted rashes or bruises Psych: Appropriate mood and affect Neuro: No gross deficits HEENT: NC/AT Chest: Nontender to palpation. CV: RRR Resp: Breath sounds clear bilaterally, no increased effort of breathing. Abdomen:Soft, tender in RUQ on my exam, No guarding Extremities: No edema in lower extremities bilaterally. Principal Diagnosis Hyponatremia Gastroenteritis Discharge Exam General: Alert, oriented. No acute distress HEENT: NC/AT CV: RRR Resp: Breath sounds clear bilaterally, no increased effort of breathing. Abdomen: Soft, nontender, No guarding Neuro: awake, alert, answers appropriately, no facial asymmetry, moves extremities Extremities: No edema in lower extremities bilaterally. Skin: warm, dry Discharge Data Allergies Allergy/AdvReac Type Severity Reaction Status Date / Time codeine AdvReac Intermediate headache Verified 07/12/21 10:49 Consultations 08/15/23 14:15 ED Decision to Admit Stat 08/15/23 16:52 Consult Nephrology Routine 08/15/23 18:05 Consult Gastroenterology Routine Consult Nephrology Routine Ordered Studies 08/15/23 11:53 CT abd pelvis IV con only Stat FINDINGS: No acute process of the imaged lower chest. Mild bibasilar atelectasis. No free air. Unremarkable spleen, pancreas and adrenal glands. Hepatic steatosis. Patency of the hepatic and portal veins. Mildly distended gallbladder with borderline wall thickening No hydronephrosis. 2.0 cm cyst of the interpolar left kidney, previously 1.1 cm. Urinary bladder wall thickening with partial distention. Prostatomegaly. No abdominal aortic aneurysm or lymphadenopathy. No bowel obstruction or bowel wall thickening. Prior partial large and small bowel resections. No ascites or mesenteric inflammation. Unremarkable soft tissues. Degenerative changes of the spine, pelvis and hips. IMPRESSION: 1. Mild nonspecific gallbladder wall thickening could be correlated with ultrasound if of further clinical concern. 2. Prior large and small bowel resections. No bowel obstruction or bowel wall thickening. 3. Hepatic steatosis. 08/15/23 15:08 US liver Urgent FINDINGS: Liver: Diffuse fatty liver. The liver measures 20.9 cm. Gallbladder: The gallbladder wall measures 1.5 mm. There is sludge within the gallbladder. There are 2 small areas within the gallbladder wall with, tail artifact which may indicate adenomyomatosis. No distinct stones visualized. Common bile duct: The common bile duct measures 4.8 mm. Pancreas: The pancreas is obscured. Kidneys: The visualized right kidney is unremarkable with no hydronephrosis. Bowel: Exam is limited due to gas artifact in the bowel and body habitus . Free fluid: The heart for ascites and assessable due to prior pain medication. IMPRESSION: 1. Diffuse fatty liver with possible hepatomegaly. 2. Possible adenomyomatosis with no distinct stones or signs of acute cholecystitis. 3. Remainder of the right upper quadrant ultrasound unremarkable. Hospital Course (1) Acute hyponatremia: (2) Acute hyperkalemia: (3) Diarrhea: (4) Generalized weakness: (5) Carcinoid tumor of colon: (6) REN on CPAP: (7) Ulcerative colitis: (8) H/O colectomy: Plan Pt is a 57yoM with PMhx significant for UC s/p total colectomy, malignant carcinoid tumor of the colon, Hx of testicular cancer, Hx of pancreatitis, RA, asthma, prediabetes, REN on CPAP, depression presenting with acute N/V/D/abdominal pain symptoms and admitted with significant electrolyte abnormalities. Abdominal Pain N/V/Diarrhea Pt notes Hx of UC diagnosed in the 6th grade with bowel resections Also diagnosed with colon cancer at age 28, carcinoid tumor Notes entire large intestine was removed Last 6 days watery diarrhea now yellow green, anorexia(states 14 pound weight loss), warm sweats, N/V CT abd/pelvis unremarkable, does note gallbladder thickening Stool Cx negative Biofire negative US liver - fatty liver, sludge within gallbladder, Possible adenomyomatosis with no distinct stones or signs of acute cholecystitis. Trend liver enzymes, t bili elevated GI consulted, appreciate recs. Possible dumping syndrome?, recurrence of carcinoid tumor? pt follows with Dr Patiño locally, notes last colonoscopy about 2 years ago Per GI - -O&P studies pending. If not improving, consider repeating scope inpatient vs outpatient with his typical GI provider. Discussed abx - don't feel needed as pt's diarrhea is improving. 08/17 Pt feels much improved and asking to be discharged. He is tolerating diet. Na is 134. Stools are back to his baseline. The rest of the stool studies pending at this time - follow up as outpt Elevated lipase Pt with abdominal pain and elevated lipase of [address] Continue to monitor in setting of significant hyponatremia will defer to nephrology re:fluids (see below) restarted gentle IV NS - will further discuss w/ nephro Hyponatremia Sodium level of 125 noted Urine osm 712, urine <10 Received 2L of NSS in the ED Possibly decreased in setting of pain and increased ADH secretion, possible dumping syndrome? Nephrology consulted, appreciate recs q4h BMP Avoid overcorrection 130 evening of admission, and IVF was stopped by admitting provider. 132 next AM - restarted gentle IVF NS - will further discuss w/ nephro Na 134 - plan to DC as above Hyperkalemia Potassium elevated at 5.4 q4h BMP Continue to monitor K improved now Nephrology consulted as above Elevated CK (not high enough for rhabdo) Pt notes muscle cramping CK elevated at 358 --> 170 Received 2L of fluids in the ED Continued w/ maint. NS Hyperglycemia Current hgba1c 5.6% Mood Continue home meds Total Time Total Time Spent Total Time Spent (In Minutes): 40 Discharge Plan Discharge Items Patient Disposition: Home - Self-Care Reason For Visit: HYPONATREMIA Discharge Diagnosis: Hyponatremia Gastroenteritis Activity: Per Instructions section Non-emergency contact: Primary Care Provider Call non-emergency contact if: you have any medication questions and your symptoms worsen Follow-up/Referrals: Celso Oneal MD [Primary Care Provider] - (Please note that your previously scheduled appointment on 08/20/23 has been cancelled Date & Time 08/22/2023 12:00 PM Provider Celso Oneal MD [facility] ) Diet: Regular Addtl Attending Provider Instructions: Follow up with your primary care doctor within 1 week. Make sure to stay well hydrated. For now, avoid any heavy, fatty, or fried foods. Also make sure that all the foods you consume are either well washed, or well cooked through. Pending Studies at Discharge: Yes Studies:: stool studies Stand-Alone Forms: My [facility] [employer], Smoking Cessation Medications and DC Order Prescriptions: Continued ondansetron HCl 4 mg tablet 4 mg PO Q6 PRN (Reason: nausea) Qty: 30 0RF sertraline [Zoloft] 100 mg Tablet 200 mg PO QAM acetaminophen 500 mg capsule 1,000 mg PO BID bupropion HCl 150 mg tablet extended release 24 hr 150 mg PO QAM Discharge Orders: Discharge Order (Routine); Ordered 08/18/23 Ordered By: Sriram Henley Admission Data Admit Date/Time: 08/15/23 14:17 Attending Provider: Sriram Henley Admit Provider: Laura Barrett Primary Care Provider: Celso Oneal Other Providers: Sharita Reed; Laura Barrett; Chi Potter
== END 2023-08-18 09:55 | disposition home or self-care (01) | DRG 641 ==
LOC: ED 10:01 → SUATTDRO 14:17 → EDINP 14:17 → 2S 18:11